=== PATIENT | male | born 1945 | race Caucasian/White ===

== ENCOUNTER 2019-04-15 22:11 | Emergency (ER) | payer OTHER ==
[2019-04-15] MEDS ORDERED: DUONEB 0.5-3 MG/3 ml Neb IH ONE ×2 (22:17→22:23)
[2019-04-15 22:27] LABS: BASOPHIL % 1.3 % (0.0-0.4); Basophil (Absolute #) 0.07 (0-0.4); Eosinophil (Absolute #) 0.11 (0-0.5); Granulocyte Absolute (ANC) 2.22 (1.4-6.9); Granulocytes % 39.5 % (36.0-66.0); Hematocrit 38.8 % (42-50); Hemoglobin 13.9 gm/dl (12.5-18.0); Lymphocyte (Absolute #) 2.29 (1.0-4.6); Lymphocytes % 40.9 % (24.0-44.0); Mean Cell Volume 98.5 fl (78-100); Mean Corpuscular Hgb Concent. 35.8 g/dl (32-36); Mean Platelet Volume 9.5 fl (6-9.5); Monocytes % 16.3 % (0.0-12.0); Platelet Count 216 K/mm3 (150-450); Red Blood Count 3.94 M/mm3 (4.1-5.6); Red Cell Distribution Width 12.9 % (11.5-14.0); White Blood Count 5.6 K/mm3 (4.0-10.5)
--- NOTE | 2019-04-15 22:30 | ERPHSYRPT ---
- History of Present Illness Time Seen by Provider: 04/15/19 22:22 Source: patient, EMS Exam Limitations: no limitations Physician History: Pt has been c/o chronic SOB, significantly worsened tonight, few hours ago. He denies cold symptoms, productive cough, sore throat, fever, chills, headaches, chest pain, nausea, vomiting, other complaints. He was given 125 mg Solumedrol IV and Albuterol, Duoneb treatment by EMS, with no improvement, he arrived on 15 l/min Oxygen, alert and oriented x4, discussed life support with him, he declared himself DNR, refuses intubation, CPR, any agressive measures, accepts antibiotics . Activities at Onset: none Severity of Dyspnea-Max: severe Severity of Dyspnea-Current: severe Possible Cause: frequent episodes Modifying Factors: Improves With: nothing Associated Symptoms: cough, wheezing Allergies/Adverse Reactions: No Known Drug Allergies Allergy (Unverified 04/15/19 22:31) Home Medications: Albuterol 8 gm Mdi Hfa [Ventolin Hfa MDI] 1 puff IH Q4H PRN PRN 04/15/19 [ History] Nebivolol HCl [Bystolic] 20 mg PO DAILY 04/15/19 [History] Umeclidinium Brm/Vilanterol Tr [Anoro Ellipta 62.5-25 Mcg INH] 1 puff IH DAILY 04/15/19 [History] - Review of Systems Constitutional: No Symptoms Ears, Nose, & Throat: No Symptoms Respiratory: Cough, Dyspnea Cardiac: No Symptoms Abdominal/Gastrointestinal: No Symptoms Musculoskeletal: No Symptoms Skin: No Symptoms Neurological: No Symptoms All Other Systems: Reviewed and Negative - Nursing Vital Signs Nursing Vital Signs: Initial Vital Signs Temperature 98.5 F 04/15/19 22:16 Pulse Rate 83 04/15/19 22:16 Respiratory Rate 39 H 04/15/19 22:16 Blood Pressure 178/92 04/15/19 22:16 O2 Sat by Pulse Oximetry 99 04/15/19 22:16 Pain Scale Pain Intensity 0 - Physical Exam General Appearance: mild distress Eye Exam: eyes nml inspection Ears, Nose, Throat Exam: normal ENT inspection, normal pharynx Neck Exam: normal inspection, non-tender, supple, No JVD Respiratory Exam: respiratory distress (mild), airway intact, diminished breath sounds, No chest tenderness Cardiovascular/Chest Exam: normal heart sounds, regular rate/rhythm, normal peripheral pulses, No murmur, No edema, No JVD Abdominal/Gastrointestinal Exam: soft, normal bowel sounds, No tenderness Extremity Exam: non-tender, No no calf tenderness, No no pedal edema, No socrates' s sign Peripheral Pulses Exam: carotid (R): 2+, carotid (L): 2+, dorsalis-pedis (R): 1+ , dorsalis-pedis (L): 1+ Neurologic Exam: alert, oriented x 3, cooperative, normal mood/affect Skin Exam: normal color, warm, dry, No rash, No petechiae, No cyanosis Lymphatic Exam: No adenopathy SpO2 Interpretation: borderline oxygenation O2 Delivery: Room Air - Course Nursing assessment & vital signs reviewed: Yes EKG Interpreted by Me: RATE, Sinus Rhythm, Right [place] Deviation, NORMAL INTERVALS, Non-specific ST Changes, Other (Bifascicular block, repeat Ek: 06 AM; NSR 80/min, unchanged.) - Radiology Exams Chest X-ray Interpretation: Interpreted by me, Negative, Other (COPD, Emphysema) - CT Exams Chest CT Interpretation: Negative, Tele-radiologist Report Ordered Tests: Active Orders 24 hr Category Date Time Status Jockey Room Custodian STAT Care 04/15/19 22:18 Active EKG-ER Only STAT Care 04/15/19 22:17 Active EKG-ER Only STAT Care 04/16/19 00:56 Active IV Insertion STAT Care 04/15/19 22:17 Active IV Insertion-2nd Peripheral STAT Care 04/15/19 22:22 Active Oxygen-ED Only Nasal Cannula 2 lpm Care 04/15/19 22:54 Active CHEST 1 VIEW (PORTABLE) Stat Exams 04/15/19 22:18 Taken CHEST WITH CONTRAST [CT] Stat Exams 04/16/19 00:02 Taken ARTERIAL BLOOD GASES Stat Lab 04/15/19 22:30 Completed BLOOD CULTURE Stat Lab 04/15/19 22:35 Received CBC W DIFF Stat Lab 04/15/19 22:15 Completed CMP Stat Lab 04/15/19 22:15 Completed D-DIMER QUANTITATION Stat Lab 04/15/19 22:15 Completed Lactic Acid Stat Lab 04/15/19 22:30 Completed MAGNESIUM Stat Lab 04/15/19 22:15 Completed NT PRO BNP Stat Lab 04/15/19 22:15 Completed PROTIME WITH INR Stat Lab 04/15/19 22:15 Completed PTT Stat Lab 04/15/19 22:15 Completed TROPONIN Q3H Lab 04/15/19 22:15 Completed TROPONIN Q3H Lab 04/16/19 01:04 Completed TROPONIN Q3H Lab 04/16/19 01:30 Ordered TROPONIN Q3H Lab 04/16/19 04:00 Ordered TROPONIN Q3H Lab 04/16/19 04:30 Ordered TROPONIN Q3H Lab 04/16/19 07:00 Ordered TROPONIN Q3H Lab 04/16/19 07:30 Ordered TROPONIN Q3H Lab 04/16/19 10:00 Ordered TROPONIN Q3H Lab 04/16/19 10:30 Ordered TROPONIN Q3H Lab 04/16/19 13:00 Ordered TROPONIN Q3H Lab 04/16/19 16:00 Ordered TROPONIN Q3H Lab 04/16/19 19:00 Ordered TROPONIN Q3H Lab 04/16/19 22:00 Ordered Respiratory Therapy Assessment DAILY RT 04/15/19 23:51 Active Medication Summary Discontinued Medications Generic Name Dose Route Start Last Admin Trade Name Freq PRN Reason Stop Dose Admin Albuterol/Ipratropium 3 ml 04/15/19 22:17 04/15/19 22:26 Duoneb 0.5-3 Mg/3 Ml Neb IH 04/15/19 22:18 3 ml STAT ONE Administration Albuterol/Ipratropium Confirm 04/15/19 22:23 Duoneb 0.5-3 Mg/3 Ml Neb Administered 04/15/19 22:24 Dose 3 ml IH .STK-MED ONE Lab/Rad Data: Laboratory Result Diagrams 04/15/19 22:15 04/15/19 22:15 Laboratory Results 04/16/19 04/15/19 04/15/19 Range/Units 01:04 22:30 22:15 WBC (4.0-10.5) K/mm3 RBC (4.1-5.6) M/mm3 Hgb (12.5-18.0) gm/dl Hct (42-50) % MCV (78-100) fl MCH (26-32) pg MCHC (32-36) g/dl RDW (11.5-14.0) % Plt Count (150-450) K/mm3 MPV (6-9.5) fl Gran % (36.0-66.0) % Eos # (Auto) (0-0.5) Absolute Lymphs (auto) (1.0-4.6) Absolute Monos (auto) (0.0-1.3) Lymphocytes % (24.0-44.0) % Monocytes % (0.0-12.0) % Eosinophils % (0.00-5.0) % Basophils % (0.0-0.4) % Absolute Granulocytes (1.4-6.9) Basophils # (0-0.4) PT (8.83-12.87) SECONDS INR (0.8-3.0) APTT (24.1-36.1) SECONDS D-Dimer 649 H* (215-500) ng/mL Puncture Site RIGHT RADIAL pCO2 35 (35-45) mmHg pO2 104 H (75-100) mmHg Base Excess -3.1 L (-2.0-2.0) O2 Saturation 92.7 L (94-100) g/dF ABG pH 7.39 (7.35-7.45) ABG HCO3 21.2 L (22-28) ABG O2 Sat (Measured) 97.5 (95-100) % Ronnie Test YES A-a Gradient 52 a/A Ratio 0.67 Hemoglobin 13.6 Carboxyhemoglobin 4.1 (0.0-6.9) % THgb Methemoglobin 0.8 L (1.4-1.5) % Temperature 37.0 C POC O2 Flow Rate 28 % Sodium (137-145) mmol/L Potassium 4.0 (3.5-5.1) mmol/L Chloride (98-107) mmol/L Carbon Dioxide (22-30) mmol/L Anion Gap (5-15) MEQ/L BUN (9-20) mg/dL Creatinine (0.66-1.25) mg/dL Estimated GFR ML/MIN Glucose (74-106) mg/dL Lactic Acid 2.0 (0.4-2.0) Calcium (8.4-10.2) mg/dL Magnesium (1.6-2.3) mg/dL Total Bilirubin (0.2-1.3) mg/dL AST (17-59) U/L ALT (0-50) U/L Alkaline Phosphatase (38-126) U/L Troponin I < 0.012 (0.000-0.034) ng/mL NT-Pro-B Natriuret Pep (0-900) pg/mL Serum Total Protein (6.3-8.2) g/dL Albumin (3.5-5.0) g/dL 04/15/19 04/15/19 04/15/19 Range/Units 22:15 22:15 22:15 WBC (4.0-10.5) K/mm3 RBC (4.1-5.6) M/mm3 Hgb (12.5-18.0) gm/dl Hct (42-50) % MCV (78-100) fl MCH (26-32) pg MCHC (32-36) g/dl RDW (11.5-14.0) % Plt Count (150-450) K/mm3 MPV (6-9.5) fl Gran % (36.0-66.0) % Eos # (Auto) (0-0.5) Absolute Lymphs (auto) (1.0-4.6) Absolute Monos (auto) (0.0-1.3) Lymphocytes % (24.0-44.0) % Monocytes % (0.0-12.0) % Eosinophils % (0.00-5.0) % Basophils % (0.0-0.4) % Absolute Granulocytes (1.4-6.9) Basophils # (0-0.4) PT 9.5 (8.83-12.87) SECONDS INR 0.84 (0.8-3.0) APTT 34.2 (24.1-36.1) SECONDS D-Dimer (215-500) ng/mL Puncture Site pCO2 (35-45) mmHg pO2 (75-100) mmHg Base Excess (-2.0-2.0) O2 Saturation (94-100) g/dF ABG pH (7.35-7.45) ABG HCO3 (22-28) ABG O2 Sat (Measured) (95-100) % Ronnie Test A-a Gradient a/A Ratio Hemoglobin Carboxyhemoglobin (0.0-6.9) % THgb Methemoglobin (1.4-1.5) % Temperature C POC O2 Flow Rate % Sodium 135 L (137-145) mmol/L Potassium 4.3 (3.5-5.1) mmol/L Chloride 100 (98-107) mmol/L Carbon Dioxide 24 (22-30) mmol/L Anion Gap 15.0 (5-15) MEQ/L BUN 13 (9-20) mg/dL Creatinine 0.87 (0.66-1.25) mg/dL Estimated GFR > 60.0 ML/MIN Glucose 89 (74-106) mg/dL Lactic Acid (0.4-2.0) Calcium 9.3 (8.4-10.2) mg/dL Magnesium 2.0 (1.6-2.3) mg/dL Total Bilirubin 0.30 (0.2-1.3) mg/dL AST 32 (17-59) U/L ALT 18 (0-50) U/L Alkaline Phosphatase 89 (38-126) U/L Troponin I < 0.012 (0.000-0.034) ng/mL NT-Pro-B Natriuret Pep 68.1 (0-900) pg/mL Serum Total Protein 7.6 (6.3-8.2) g/dL Albumin 4.3 (3.5-5.0) g/dL 04/15/19 Range/Units 22:15 WBC 5.6 (4.0-10.5) K/mm3 RBC 3.94 L (4.1-5.6) M/mm3 Hgb 13.9 (12.5-18.0) gm/dl Hct 38.8 L (42-50) % MCV 98.5 (78-100) fl MCH 35.2 H (26-32) pg MCHC 35.8 (32-36) g/dl RDW 12.9 (11.5-14.0) % Plt Count 216 (150-450) K/mm3 MPV 9.5 (6-9.5) fl Gran % 39.5 (36.0-66.0) % Eos # (Auto) 0.11 (0-0.5) Absolute Lymphs (auto) 2.29 (1.0-4.6) Absolute Monos (auto) 0.91 (0.0-1.3) Lymphocytes % 40.9 (24.0-44.0) % Monocytes % 16.3 H (0.0-12.0) % Eosinophils % 2.0 (0.00-5.0) % Basophils % 1.3 (0.0-0.4) % Absolute Granulocytes 2.22 (1.4-6.9) Basophils # 0.07 (0-0.4) PT (8.83-12.87) SECONDS INR (0.8-3.0) APTT (24.1-36.1) SECONDS D-Dimer (215-500) ng/mL Puncture Site pCO2 (35-45) mmHg pO2 (75-100) mmHg Base Excess (-2.0-2.0) O2 Saturation (94-100) g/dF ABG pH (7.35-7.45) ABG HCO3 (22-28) ABG O2 Sat (Measured) (95-100) % Ronnie Test A-a Gradient a/A Ratio Hemoglobin Carboxyhemoglobin (0.0-6.9) % THgb Methemoglobin (1.4-1.5) % Temperature C POC O2 Flow Rate % Sodium (137-145) mmol/L Potassium (3.5-5.1) mmol/L Chloride (98-107) mmol/L Carbon Dioxide (22-30) mmol/L Anion Gap (5-15) MEQ/L BUN (9-20) mg/dL Creatinine (0.66-1.25) mg/dL Estimated GFR ML/MIN Glucose (74-106) mg/dL Lactic Acid (0.4-2.0) Calcium (8.4-10.2) mg/dL Magnesium (1.6-2.3) mg/dL Total Bilirubin (0.2-1.3) mg/dL AST (17-59) U/L ALT (0-50) U/L Alkaline Phosphatase (38-126) U/L Troponin I (0.000-0.034) ng/mL NT-Pro-B Natriuret Pep (0-900) pg/mL Serum Total Protein (6.3-8.2) g/dL Albumin (3.5-5.0) g/dL - Progress Progress: improved Air Movement: good Progress Note: 04/16/19 01:22 Pt improved significantly, his Oxygen supply was removed, O 2 saturation: 94-95 % on room air, afebrile, denies chest pain, no difficulty breathing, stable. We reviewed his results with him and his son ( CT chest : negative, repeat troponin : negative) he is being discharged home with his son to rest x 2-3 days , drink plenty of fluids, and follow up with his physician in 2-3 days. Blood Culture(s) Obtained: Yes Antibiotics given: Yes Counseled pt/family regarding: lab results, diagnosis, need for follow-up, rad results - Departure Departure Disposition: Home Clinical Impression: COPD (chronic obstructive pulmonary disease) with acute bronchitis Condition: Stable Critical Care Time: No Referrals: Provider,Unknown [Primary Care Provider] - Instructions: Chronic Obstructive Pulmonary Disease, Shortness of Breath ( Dyspnea) (DC), Exacerbation of COPD (DC) Additional Instructions: Rest x 2-3 days, drink plenty of fluids, and follow up with your physician in 2- 3 days, return if severe shortness of breath, chest pain, vomiting, fever> 102 F , lethargy ! Prescriptions: Azithromycin 250 mg [Zithromax 250 MG TABLET] 250 mg PO ZPACK #6 tablet Methylprednisolone Packet [Medrol Dosepack] 4 mg PO UD #1 packet
[2019-04-15 22:33] LABS: Mean Corpuscular Hemoglobin 35.2 pg (26-32)
[2019-04-15 22:34] LABS: INR 0.84 (0.8-3.0); PROTIME 9.5 SECONDS (8.83-12.87)
[2019-04-15 22:37] LABS: PTT 34.2 SECONDS (24.1-36.1)
[2019-04-15 22:45] LABS: A-aADO2 52; ABG HEMOGLOBIN 13.6; ARTERIAL BLD GAS O2 SATURATION 97.5 % (95-100); ARTERIAL BLOOD GAS BASE EXCESS -3.1 (-2.0-2.0); ARTERIAL BLOOD GAS FIO2 28 %; ARTERIAL BLOOD GAS PCO2 35 mmHg (35-45); ARTERIAL BLOOD GAS PO2 104 mmHg (75-100); ARTERIAL BLOOD GAS pH 7.39 (7.35-7.45); CARBOXYHEMOGLOBIN 4.1 % THgb (0.0-6.9); HCO3- 21.2 (22-28); HGB O2 SAT 92.7 g/dF (94-100); Methhemoglobin 0.8 % (1.4-1.5); paO2 pAO1 0.67
[2019-04-15 22:47] LABS: ALBUMIN 4.3 g/dL (3.5-5.0); ALKALINE PHOSPHATASE 89 U/L (38-126); BLOOD UREA NITROGEN 13 mg/dL (9-20); CHLORIDE 100 mmol/L (98-107); Calcium 9.3 mg/dL (8.4-10.2); Carbon Dioxide 24 mmol/L (22-30); Creatinine 1 0.87 mg/dL (0.66-1.25); Glucose 89 mg/dL (74-106); NT PRO BNP 68.1 pg/mL (0-900); Potassium 4.3 mmol/L (3.5-5.1); SGOT/AST 32 U/L (17-59); SGPT/ALT 18 U/L (0-50); SODIUM 135 mmol/L (137-145); Total Protein 7.6 g/dL (6.3-8.2)
[2019-04-15 22:52] LABS: ABG SITE RIGHT RADIAL; ALLEN TEST OK? YES
[2019-04-16 01:10] VITALS: O2SAT 95
[2019-04-16 01:38] VITALS: BP 125/78; PULSE 87
--- NOTE | 2019-04-16 09:20 | XRAY ---
Indication: Dyspnea. Comparison: August 30, 2007. Portable apical lordotic chest unchanged again hyperinflated and clear with incidental lingula calcified granuloma. Heart and mediastinal structures within normal limits. Bony thorax intact. No new/acute findings.
--- NOTE | 2019-04-16 09:20 | XRAY ---
Indication: Dyspnea and elevated d-dimer. COPD. Multiple contiguous axial images obtained through the chest using 80 cc Isovue 370 contrast and PE protocol. Comparison: None There is good opacification of the pulmonary arteries to include the lobar and segmental branches. No filling defect or pulmonary embolus. Heart is not enlarged. Aorta is mildly arteriosclerotic without aneurysm/dissection. No pathologic mediastinal/hilar lymphadenopathy. Examination of the lung parenchyma demonstrates mild diffuse pulmonary emphysema with minimal fibrosis/scarring and left lower lobe calcified granuloma. No suspicious pulmonary mass, infiltrate, or effusion. Bony thorax intact with mild degenerative changes throughout the spine. Limited upper abdomen including adrenal glands are unremarkable. Impression: 1. Negative pulmonary embolus. No acute cardiopulmonary abnormalities. 2. Incidental pulmonary emphysema and evidence for old granulomatous disease. Comment: Preliminary interpretation was made by [facility]. No discrepancy. CT DI 15.39
== END 2019-04-16 01:50 | disposition home or self-care (01) ==
LOC: ED 22:11
DX: J44.9 Chronic obstructive pulmonary disease, unspecified (principal); J20.9 Acute bronchitis, unspecified
CPT/HCPCS: 36000; 36415; 36600; 71045; 71260; 80053; 82375; 82803; 83605; 83735; 83880; 84484; 85025; 85379; 85610; 85730; 87040; 93005; 93041; 94640; 99284; A9270-GY

== ENCOUNTER 2019-11-09 23:33 | Emergency (ER) | payer MEDICARE, OTHER ==
[2019-11-09] MEDS ORDERED: DUONEB 0.5-3 MG/3 ml Neb IH ONE ×2 (23:42→23:47)
[2019-11-09] MEDS ORDERED: Sodium Chloride 0.9% 1000 ML 1,000 ML IV STA (23:46)
[2019-11-09] MEDS ORDERED: BABY ASPIRIN 81 MG CHEW PO ONE (23:46)
[2019-11-09] MEDS ORDERED: solu-MEDROL 125 MG IV ONE (23:47)
[2019-11-09] MEDS ORDERED: Zofran 4 MG/2 ML VIAL IV ONE (23:47)
[2019-11-10 00:01] LABS: Absolute Neutrophil Ct (ANC) 2.23 (1.4-6.9); BASOPHIL % 0.8 % (0.0-0.4); Basophil (Absolute #) 0.04 (0-0.4); Eosinophil % 1.9 % (0.00-5.0); Hematocrit 46.2 % (42-50); Hemoglobin 15.8 gm/dl (12.5-18.0); Lymphocyte (Absolute #) 2.21 (1.0-4.6); Lymphocytes % 42.3 % (24.0-44.0); Mean Cell Volume 100.4 fl (78-100); Mean Corpuscular Hemoglobin 34.3 pg (26-32); Mean Corpuscular Hgb Concent. 34.2 g/dl (32-36); Mean Platelet Volume 10.3 fl (7.5-11.0); Monocyte (Absolute #) 0.65 (0.0-1.3); Monocytes % 12.4 % (0.0-12.0); Neutrophil % 42.6 % (36.0-66.0); Platelet Count 226 K/mm3 (150-450); Red Cell Distribution Width 13.9 % (11.5-14.0); White Blood Count 5.2 K/mm3 (4.0-10.5)
--- NOTE | 2019-11-10 00:16 | ERPHSYRPT ---
- History of Present Illness Source: patient Exam Limitations: no limitations Patient Subjective Stated Complaint: pt states he has been increasingly short of breath for the last 2-3 hours. Triage Nursing Assessment: pt alert and oriented, ansers questions approp. pt back per wheelchair, transfers to stretcher with minimal assist. pt short of [id number] at rest with pursed lip breathing and accessory muscle use. lungs cta after breathing treatment. skin warm and dry. Physician History: Patient is here with SOB. Known COPD and continues to smoke cigarettes. Some nausea, without vomiting. Location: chest Quality: SOB, malaise Radiation: none Severity: moderate Duration: a few days, but worse today Timing: gradual Modifying factors/associated signs and symptoms: he did have his flu shot this year Timing/Duration: today Cough Quality/Degree: mild Possible Cause: frequent episodes Allergies/Adverse Reactions: No Known Drug Allergies Allergy (Verified 11/09/19 23:52) Home Medications: Albuterol 8 gm Mdi Hfa [Ventolin Hfa MDI] 1 puff IH Q4H PRN PRN 04/15/19 [ History] Nebivolol HCl [Bystolic] 20 mg PO DAILY 04/15/19 [History] Fluticasone/Umeclidin/Vilanter [Trelegy Ellipta 100-62.5-25] 1 each IH DAILY 09/18 [History] Hx Tetanus, Diphtheria Vaccination/Date Given: Yes Hx Influenza Vaccination/Date Given: Yes Hx Pneumococcal Vaccination/Date Given: No Immunizations Up to Date: Yes - Review of Systems Constitutional: No Fever, No Chills Eyes: No Symptoms Ears, Nose, & Throat: No Symptoms Respiratory: Cough, Dyspnea, Wheezing Cardiac: No Chest Pain, No Edema, No Syncope Abdominal/Gastrointestinal: No Abdominal Pain, No Nausea, No Vomiting, No Diarrhea Genitourinary Symptoms: No Dysuria Musculoskeletal: No Back Pain, No Neck Pain Skin: No Rash Neurological: No Dizziness, No Focal Weakness, No Sensory Changes Psychological: No Symptoms Endocrine: No Symptoms All Other Systems: Reviewed and Negative - Past Medical History Neurological History: No Pertinent History ENT History: No Pertinent History Cardiac History: Hypertension Respiratory History: Asthma, COPD, Emphysema Endocrine Medical History: No Pertinent History Musculoskeletal History: No Pertinent History GI Medical History: No Pertinent History History: No Pertinent History Psycho-Social History: No Pertinent History - Past Surgical History Past Surgical History: No Neuro Surgical History: No Pertinent History Cardiac: No Pertinent History Respiratory: No Pertinent History Gastrointestinal: No Pertinent History Genitourinary: No Pertinent History Musculoskeletal: No Pertinent History Male Surgical History: No Pertinent History - Social History Smoking Status: Current every day smoker How long have you smoked: years Exposure to second hand smoke: Yes Drug Use: none Patient Lives Alone: Yes - Nursing Vital Signs Nursing Vital Signs: Initial Vital Signs Temperature 96.4 F 11/09/19 23:34 Pulse Rate 75 11/09/19 23:34 Respiratory Rate 30 H 11/09/19 23:34 Blood Pressure 188/88 11/09/19 23:34 O2 Sat by Pulse Oximetry 97 11/09/19 23:34 Pain Scale Pain Intensity 0 - Physical Exam General Appearance: no apparent distress, alert Eye Exam: PERRL/EOMI, eyes nml inspection Ears, Nose, Throat Exam: normal ENT inspection, TMs normal, pharynx normal, moist mucous membranes Neck Exam: normal inspection, non-tender, supple, full range of motion Respiratory Exam: normal breath sounds, lungs clear, wheezing (wheezing throughout), No respiratory distress Cardiovascular Exam: regular rate/rhythm, normal heart sounds Gastrointestinal/Abdomen Exam: soft, No tenderness Back Exam: normal inspection, No CVA tenderness, No vertebral tenderness Extremity Exam: normal inspection, normal range of motion Neurologic Exam: alert, oriented x 3, cooperative, normal mood/affect, sensation nml, No motor deficits Skin Exam: normal color, warm, dry, No rash Lymphatic Exam: No adenopathy SpO2: 99 Ordered Tests: Active Orders 24 hr Category Date Time Status Executive Assistant To General Counsel STAT Care 11/09/19 23:46 Active EKG-ER Only STAT Care 11/09/19 23:46 Active IV Insertion STAT Care 11/09/19 23:46 Active CHEST 2 VIEWS (PA AND LAT) Stat Exams 11/09/19 23:46 Taken CBC W DIFF Stat Lab 11/09/19 23:58 Completed CMP Stat Lab 11/09/19 23:58 Completed NT PRO BNP Stat Lab 11/09/19 23:58 Completed TROPONIN Q3H Lab 11/09/19 23:58 Received TROPONIN Q3H Lab 11/10/19 02:46 Ordered TROPONIN Q3H Lab 11/10/19 05:46 Ordered TROPONIN Q3H Lab 11/10/19 08:46 Ordered TROPONIN Q3H Lab 11/10/19 11:46 Ordered Respiratory Therapy Assessment DAILY RT 11/09/19 23:45 Active Medication Summary Generic Name Dose Route Start Last Admin Trade Name Abby PRN Reason Stop Dose Admin Sodium Chloride 1,000 mls @ 999 mls/hr 11/09/19 23:46 Sodium Chloride 0.9% 1000 Ml IV 11/10/19 00:46 .Q1H1M STA Discontinued Medications Generic Name Dose Route Start Last Admin Trade Name Abby PRN Reason Stop Dose Admin Albuterol Sulfate Confirm 11/10/19 00:25 Proventil 2.5 Mg/3 Ml Neb Administered 11/10/19 00:26 Dose 2.5 mg IH .STK-MED ONE Albuterol Sulfate 2.5 mg 11/10/19 00:27 11/10/19 00:29 Proventil 2.5 Mg/3 Ml Neb IH 11/10/19 00:28 2.5 mg STAT ONE Administration Albuterol/Ipratropium Confirm 11/09/19 23:42 Duoneb 0.5-3 Mg/3 Ml Neb Administered 11/09/19 23:43 Dose 3 ml IH .STK-MED ONE Albuterol/Ipratropium 3 ml 11/09/19 23:47 11/09/19 23:50 Duoneb 0.5-3 Mg/3 Ml Neb IH 11/09/19 23:48 3 ml STAT ONE Administration Aspirin 324 mg 11/09/19 23:46 Baby Aspirin 81 Mg Chew PO 11/09/19 23:47 STAT ONE Aspirin Confirm 11/10/19 00:36 Baby Aspirin 81 Mg Chew Administered 11/10/19 00:37 Dose 324 mg .ROUTE .STK-MED ONE Sodium Chloride Confirm 11/10/19 00:36 Sodium Chloride 0.9% 1000 Ml Administered 11/10/19 00:37 Dose 1,000 mls @ ud .ROUTE .STK-MED ONE Methylprednisolone Sodium Succinate 125 mg 11/09/19 23:47 Solu-Medrol 125 Mg IV 11/09/19 23:48 STAT ONE Methylprednisolone Sodium Succinate Confirm 11/10/19 00:36 Solu-Medrol 125 Mg Administered 11/10/19 00:37 Dose 125 mg .ROUTE .STK-MED ONE Ondansetron HCl 4 mg 11/09/19 23:47 Zofran 4 Mg/2 Ml Vial IV 11/09/19 23:48 STAT ONE Ondansetron HCl Confirm 11/10/19 00:36 Zofran 4 Mg/2 Ml Vial Administered 11/10/19 00:37 Dose 4 mg .ROUTE .STK-MED ONE Lab/Rad Data: Laboratory Result Diagrams 11/09/19 23:58 11/09/19 23:58 Laboratory Results 11/09/19 11/09/19 11/09/19 Range/Units 23:58 23:58 23:58 WBC 5.2 (4.0-10.5) K/mm3 RBC 4.60 (4.1-5.6) M/mm3 Hgb 15.8 (12.5-18.0) gm/dl Hct 46.2 (42-50) % MCV 100.4 H (78-100) fl MCH 34.3 H (26-32) pg MCHC 34.2 (32-36) g/dl RDW 13.9 (11.5-14.0) % Plt Count 226 (150-450) K/mm3 MPV 10.3 (7.5-11.0) fl Gran % 42.6 (36.0-66.0) % Eos # (Auto) 0.10 (0-0.5) Absolute Lymphs (auto) 2.21 (1.0-4.6) Absolute Monos (auto) 0.65 (0.0-1.3) Lymphocytes % 42.3 (24.0-44.0) % Monocytes % 12.4 H (0.0-12.0) % Eosinophils % 1.9 (0.00-5.0) % Basophils % 0.8 (0.0-0.4) % Absolute Granulocytes 2.23 (1.4-6.9) Basophils # 0.04 (0-0.4) Sodium 134 L (137-145) mmol/L Potassium 3.9 (3.5-5.1) mmol/L Chloride 99 (98-107) mmol/L Carbon Dioxide 25 (22-30) mmol/L Anion Gap 14.7 (5-15) MEQ/L BUN 9 (9-20) mg/dL Creatinine 0.86 (0.66-1.25) mg/dL Estimated GFR > 60.0 ML/MIN Glucose 88 (74-106) mg/dL Calcium 9.5 (8.4-10.2) mg/dL Total Bilirubin 0.50 (0.2-1.3) mg/dL AST 51 (17-59) U/L ALT 24 (0-50) U/L Alkaline Phosphatase 78 (38-126) U/L NT-Pro-B Natriuret Pep 92.6 (0-900) pg/mL Serum Total Protein 9.1 H (6.3-8.2) g/dL Albumin 5.1 H (3.5-5.0) g/dL Influenza Type A Ag NEGATIVE (NEGATIVE) Influenza Type B Ag NEGATIVE (NEGATIVE) RSV (PCR) NEGATIVE (Negative) - Progress Progress: improved Air Movement: good Progress Note: 11/10/19 00:15 - We'll obtain basic labs, fluids, EKG, troponin, chest x-ray - I feel comfortable with one time negative troponin given symptoms have improved and started greater then 6 hours ago. - EKG shows no ST changes - my read. See full read below. - O2 saturations consistently greater than 95%. - CXR shows no pneumonia, pneumothorax - my read - no other obvious lab abnormalities - fluids, breathing tx, steriods 11/10/19 00:45 Patient feeling improved. His wheezing has resolved. Labs and workup are generally unremarkable. He will need close follow up with his PCP. We'll discharge home with steroids and a zpack. - Departure Departure Disposition: Home Clinical Impression: COPD (chronic obstructive pulmonary disease) with acute bronchitis Condition: Stable Critical Care Time: No Referrals: MARCK ALMANZAR [ACTIVE STAFF] - Instructions: Chronic Obstructive Pulmonary Disease Prescriptions: Azithromycin 250 mg [Zithromax 250 MG TABLET] 250 mg PO ZPACK #6 tablet Prednisone 10 mg [Deltasone 10 mg] 60 mg PO DAILY #15 tablet
[2019-11-10 00:24] LABS: ALBUMIN 5.1 g/dL (3.5-5.0); ALKALINE PHOSPHATASE 78 U/L (38-126); ANION GAP 14.7 MEQ/L (5-15); BLOOD UREA NITROGEN 9 mg/dL (9-20); CHLORIDE 99 mmol/L (98-107); Calcium 9.5 mg/dL (8.4-10.2); Carbon Dioxide 25 mmol/L (22-30); Creatinine 1 0.86 mg/dL (0.66-1.25); Glucose 88 mg/dL (74-106); NT PRO BNP 92.6 pg/mL (0-900); Potassium 3.9 mmol/L (3.5-5.1); SGOT/AST 51 U/L (17-59); SGPT/ALT 24 U/L (0-50); SODIUM 134 mmol/L (137-145); Total Protein 9.1 g/dL (6.3-8.2)
[2019-11-10] MEDS ORDERED: PROVENTIL 2.5 MG/3 ML NEB IH ONE ×2 (00:25→00:27)
[2019-11-10] MEDS ORDERED: solu-MEDROL 125 MG ONE (00:36)
[2019-11-10] MEDS ORDERED: BABY ASPIRIN 81 MG CHEW ONE (00:36)
[2019-11-10] MEDS ORDERED: Sodium Chloride 0.9% 1000 ML 1,000 ML ONE (00:36)
[2019-11-10] MEDS ORDERED: Zofran 4 MG/2 ML VIAL ONE (00:36)
[2019-11-10 00:38] LABS: INFLUENZA A NEGATIVE (NEGATIVE); INFLUENZA B NEGATIVE (NEGATIVE); RESPIRATORY SYNCTIAL VIRUS NEGATIVE (Negative)
[2019-11-10 01:09] VITALS: BP 120/83; PULSE 78; O2SAT 97
--- NOTE | 2019-11-10 08:57 | XRAY ---
Indication: Short of breath. Comparison: April 15, 2019. PA/lateral chest remains hyperinflated and clear with incidental left lung calcified granuloma. Heart is not enlarged. Bony thorax intact again with mild osteopenia and degenerative changes. Impression: Stable nonacute hyperinflated chest with chronic features.
== END 2019-11-10 01:24 | disposition home or self-care (01) ==
LOC: ED 23:33
DX: J44.0 Chronic obstructive pulmonary disease with (acute) lower respiratory infection (principal); F17.200 Nicotine dependence, unspecified, uncomplicated; R11.10 Vomiting, unspecified; R11.0 Nausea
CPT/HCPCS: 36000; 36415; 71046; 80053; 83880; 84484; 85025; 87631; 93005; 93041; 94640; 96374; 96375; 99284; J2405; J2930; J7609; A9270-GY

== ENCOUNTER 2020-06-10 22:25 | Observation (INO) | payer MEDICARE, OTHER ==
[2020-06-10] MEDS ORDERED: ROCEPHIN 1 Gm-D5w 50 ml Bag** 1 G/50 ML IVPB IV STA (22:49)
[2020-06-10] MEDS ORDERED: DUONEB 0.5-3 MG/3 ml Neb IH ONE ×2 (22:49→22:59)
[2020-06-10] MEDS ORDERED: Zithromax 500 MG/ 250 ML NaCl Premix 500 MG/250 ML IVPB IV STA (22:49)
[2020-06-10] MEDS ORDERED: ROCEPHIN 1 Gm-D5w 50 ml Bag** 1 G/50 ML IVPB IV ONE (23:08)
[2020-06-10] MEDS ORDERED: Zithromax 500 MG/ 250 ML NaCl Premix 500 MG/250 ML IVPB IV ONE (23:08)
[2020-06-10 23:20] LABS: Absolute Neutrophil Ct (ANC) 2.43 (1.4-6.9); BASOPHIL % 0.9 % (0.0-0.4); Basophil (Absolute #) 0.04 (0-0.4); Eosinophil % 2.5 % (0.00-5.0); Eosinophil (Absolute #) 0.11 (0-0.5); Hematocrit 37.4 % (42-50); Lymphocyte (Absolute #) 1.32 (1.0-4.6); Lymphocytes % 30.3 % (24.0-44.0); Mean Cell Volume 100.8 fl (78-100); Mean Corpuscular Hgb Concent. 34.8 g/dl (32-36); Mean Platelet Volume 9.8 fl (7.5-11.0); Monocyte (Absolute #) 0.45 (0.0-1.3); Monocytes % 10.3 % (0.0-12.0); Platelet Count 221 K/mm3 (150-450); Red Blood Count 3.71 M/mm3 (4.1-5.6); Red Cell Distribution Width 13.2 % (11.5-14.0); White Blood Count 4.4 K/mm3 (4.0-10.5)
[2020-06-10] MEDS ORDERED: BABY ASPIRIN 81 MG CHEW PO ONE (23:23)
--- NOTE | 2020-06-10 23:24 | ERPHSYRPT ---
- History of Present Illness Time Seen by Provider: 06/10/20 22:33 Source: patient, EMS Patient Subjective Stated Complaint: pt states he has been short of breath for last 2-3 hours. states last 2 nights he has been short of breath. denies fever or increased cough. Triage Nursing Assessment: pt alert and oriented, answers questions approp. pt arrive per ambulance, transfers to [facility] with assist of 3. nrb in place on arrival. skin warm and dry. pt short of breath at rest with accessory muscle use noted. lung sounds diminshed throughout. Physician History: 75 years old male with history of heavy tobacco abuse, COPD is brought in the ER with chief complaint of worsening shortness of breath for the last 2 to 3 days associated with worsening wheezing and cough productive of clear to yellow sputum copious in amount. Is also complaining of chest discomfort. When EMS got at his place, he was in mild distress and oxygen saturation was 90% on room air, given Solu-Medrol, DuoNeb and placed on oxygen and his symptoms started to improve. On presentation in the ER patient does have some shortness of breath but is feeling much better than earlier. Denies any fever or chills. Denies any chest pain but has some soreness because of coughing. Denies any sick contact. Continues to smoke 2 packs daily. Timing/Duration: day(s) (2), gradual onset, worse Activities at Onset: rest Severity of Dyspnea-Max: severe Severity of Dyspnea-Current: moderate Possible Cause: occasional episodes Modifying Factors: Improves With: albuterol nebulizer, coughing, oxygen Associated Symptoms: cough, chest pain/discomfort, wheezing, productive cough, No chills Allergies/Adverse Reactions: No Known Drug Allergies Allergy (Verified 06/10/20 22:41) Home Medications: Albuterol 8 gm Mdi Hfa [Ventolin Hfa MDI] 1 puff IH Q4H PRN PRN 04/15/19 [History] Nebivolol HCl [Bystolic] 20 mg PO DAILY 04/15/19 [History] Fluticasone/Umeclidin/Vilanter [Trelegy Ellipta 100-62.5-25] 1 each IH DAILY 11/09/19 [History] Hx Tetanus, Diphtheria Vaccination/Date Given: Yes Hx Influenza Vaccination/Date Given: Yes Hx Pneumococcal Vaccination/Date Given: Yes Immunizations Up to Date: Yes Travel Risk - International Travel Have you traveled outside of the country in past 3 weeks: No - Coronavirus Screening Are you exhibiting any of the following symptoms?: Yes Symptoms: Shortness of Breath Close contact with a COVID-19 positive Pt in past 14-21 Days: No - Review of Systems Constitutional: Fatigue Eyes: No Symptoms Ears, Nose, & Throat: No Symptoms Respiratory: Cough, Dyspnea, Wheezing Cardiac: Chest Pain Abdominal/Gastrointestinal: No Symptoms Genitourinary Symptoms: No Symptoms Musculoskeletal: No Symptoms Skin: No Symptoms Neurological: No Symptoms Psychological: No Symptoms Endocrine: No Symptoms Hematologic/Lymphatic: No Symptoms Immunological/Allergic: No Symptoms - Past Medical History Neurological History: No Pertinent History ENT History: No Pertinent History Cardiac History: Hypertension Respiratory History: Asthma, COPD, Emphysema Endocrine Medical History: No Pertinent History Musculoskeletal History: No Pertinent History GI Medical History: No Pertinent History History: No Pertinent History Psycho-Social History: No Pertinent History - Past Surgical History Past Surgical History: No Neuro Surgical History: No Pertinent History Cardiac: No Pertinent History Respiratory: No Pertinent History Gastrointestinal: No Pertinent History Genitourinary: No Pertinent History Musculoskeletal: No Pertinent History Male Surgical History: No Pertinent History - Social History Smoking Status: Current every day smoker How long have you smoked: years Exposure to second hand smoke: Yes Drug Use: none Patient Lives Alone: Yes - Nursing Vital Signs Nursing Vital Signs: Initial Vital Signs Temperature 97.5 F 06/10/20 22:27 Pulse Rate 59 L 06/10/20 22:27 Respiratory Rate 26 H 06/10/20 22:27 Blood Pressure 169/81 06/10/20 22:27 O2 Sat by Pulse Oximetry 98 06/10/20 22:27 Pain Scale Pain Intensity 0 - Physical Exam General Appearance: mild distress, alert, anxiety Eye Exam: PERRL/EOMI, eyes nml inspection Ears, Nose, Throat Exam: hearing grossly normal, normal ENT inspection, pharyngeal erythema Neck Exam: normal inspection, non-tender, supple, full range of motion Respiratory Exam: crackles/rales, wheezing Cardiovascular/Chest Exam: normal heart sounds, regular rate/rhythm Abdominal/Gastrointestinal Exam: soft, No tenderness Extremity Exam: non-tender, normal range of motion Neurologic Exam: alert, oriented x 3, cooperative, mortgage manager II-XII nml as tested Skin Exam: normal color SpO2 Interpretation: O2 applied SpO2: 100 O2 Delivery: Nasal Cannula - Course Nursing assessment & vital signs reviewed: Yes EKG Interpreted by Me: RATE (59), Sinus Rhythm, NORMAL AXIS, Right Bundle Branch Block (Nonspecific ST and T wave changes), Other (And a branch block) Ordered Tests: Active Orders 24 hr Category Date Time Status Pipe Fitter STAT Care 06/10/20 22:50 Active EKG-ER Only STAT Care 06/10/20 22:49 Active IV Insertion STAT Care 06/10/20 22:49 Active Oxygen-ED Only Nasal Cannula 2 lpm Care 06/10/20 22:49 Active CHEST 1 VIEW (PORTABLE) Stat Exams 06/10/20 22:50 Taken BLOOD CULTURE Stat Lab 06/10/20 23:16 Received CBC W DIFF Stat Lab 06/10/20 23:16 Completed CMP Stat Lab 06/10/20 23:16 Completed Lactic Acid Stat Lab 06/10/20 23:03 Completed MAGNESIUM Stat Lab 06/10/20 23:16 Completed NT PRO BNP Stat Lab 06/10/20 23:16 Completed TROPONIN Q3H Lab 06/10/20 23:16 Completed TROPONIN Q3H Lab 06/11/20 02:00 Ordered TROPONIN Q3H Lab 06/11/20 05:00 Ordered TROPONIN Q3H Lab 06/11/20 08:00 Ordered TROPONIN Q3H Lab 06/11/20 11:00 Ordered UA W/RFX UR CULTURE Stat Lab 06/11/20 00:19 Ordered Respiratory Therapy Assessment DAILY RT 06/10/20 23:07 Active Medication Summary Discontinued Medications Generic Name Dose Route Start Last Admin Trade Name Freq PRN Reason Stop Dose Admin Albuterol/Ipratropium 3 ml 06/10/20 22:49 06/10/20 23:00 Duoneb 0.5-3 Mg/3 Ml Neb IH 06/10/20 22:50 3 ml STAT ONE Administration Albuterol/Ipratropium Confirm 06/10/20 22:59 Duoneb 0.5-3 Mg/3 Ml Neb Administered 06/10/20 23:00 Dose 3 ml IH .STK-MED ONE Aspirin 324 mg 06/11/20 10:00 Ecotrin 81 Mg PO 07/11/20 09:59 DAILY ROGE Aspirin 324 mg 06/10/20 23:23 06/10/20 23:26 Baby Aspirin 81 Mg Chew PO 06/10/20 23:24 324 mg STAT ONE Administration Ceftriaxone Sodium/Dextrose 1 g in 50 mls @ 100 mls/hr 06/10/20 22:49 06/11/20 00:21 Rocephin 1 Gm-D5w 50 Ml Bag IV 06/10/20 23:18 Infused STAT STA Infusion Azithromycin 500 mg in 250 mls @ 250 mls/hr 06/10/20 22:49 06/11/20 00:21 Zithromax 500 Mg/ 250 Ml Nacl Premix IV 06/10/20 23:48 Infused STAT STA Infusion Azithromycin Confirm 06/10/20 23:08 Zithromax 500 Mg/ 250 Ml Nacl Premix Administered 06/10/20 23:09 Dose 500 mg in 250 mls @ ud IV .STK-MED ONE Ceftriaxone Sodium/Dextrose Confirm 06/10/20 23:08 Rocephin 1 Gm-D5w 50 Ml Bag Administered 06/10/20 23:09 Dose 1 g in 50 mls @ ud IV .STK-MED ONE Lab/Rad Data: Laboratory Result Diagrams 06/10/20 23:16 06/10/20 23:16 Laboratory Results 06/10/20 06/10/20 06/10/20 Range/Units 23:16 23:16 23:16 WBC (4.0-10.5) K/mm3 RBC (4.1-5.6) M/mm3 Hgb (12.5-18.0) gm/dl Hct (42-50) % MCV (78-100) fl MCH (26-32) pg MCHC (32-36) g/dl RDW (11.5-14.0) % Plt Count (150-450) K/mm3 MPV (7.5-11.0) fl Gran % (36.0-66.0) % Eos # (Auto) (0-0.5) Absolute Lymphs (auto) (1.0-4.6) Absolute Monos (auto) (0.0-1.3) Lymphocytes % (24.0-44.0) % Monocytes % (0.0-12.0) % Eosinophils % (0.00-5.0) % Basophils % (0.0-0.4) % Absolute Granulocytes (1.4-6.9) Basophils # (0-0.4) Sodium 132 L (137-145) mmol/L Potassium 4.3 (3.5-5.1) mmol/L Chloride 99 (98-107) mmol/L Carbon Dioxide 24 (22-30) mmol/L Anion Gap 13.1 (5-15) MEQ/L BUN 11 (9-20) mg/dL Creatinine 0.86 (0.66-1.25) mg/dL Estimated GFR > 60.0 ML/MIN Glucose 84 (74-106) mg/dL Lactic Acid (0.4-2.0) Calcium 9.0 (8.4-10.2) mg/dL Magnesium 2.0 (1.6-2.3) mg/dL Total Bilirubin 0.30 (0.2-1.3) mg/dL AST 36 (17-59) U/L ALT 16 (0-50) U/L Alkaline Phosphatase 79 (38-126) U/L Troponin I < 0.012 (0.000-0.034) ng/mL NT-Pro-B Natriuret Pep 132 (0-900) pg/mL Serum Total Protein 6.4 (6.3-8.2) g/dL Albumin 3.8 (3.5-5.0) g/dL Influenza Type A Ag NEGATIVE (NEGATIVE) Influenza Type B Ag NEGATIVE (NEGATIVE) RSV (PCR) NEGATIVE (Negative) 06/10/20 06/10/20 Range/Units 23:16 23:03 WBC 4.4 (4.0-10.5) K/mm3 RBC 3.71 L (4.1-5.6) M/mm3 Hgb 13.0 (12.5-18.0) gm/dl Hct 37.4 L (42-50) % MCV 100.8 H (78-100) fl MCH 35.0 H (26-32) pg MCHC 34.8 (32-36) g/dl RDW 13.2 (11.5-14.0) % Plt Count 221 (150-450) K/mm3 MPV 9.8 (7.5-11.0) fl Gran % 56.0 (36.0-66.0) % Eos # (Auto) 0.11 (0-0.5) Absolute Lymphs (auto) 1.32 (1.0-4.6) Absolute Monos (auto) 0.45 (0.0-1.3) Lymphocytes % 30.3 (24.0-44.0) % Monocytes % 10.3 (0.0-12.0) % Eosinophils % 2.5 (0.00-5.0) % Basophils % 0.9 (0.0-0.4) % Absolute Granulocytes 2.43 (1.4-6.9) Basophils # 0.04 (0-0.4) Sodium (137-145) mmol/L Potassium (3.5-5.1) mmol/L Chloride (98-107) mmol/L Carbon Dioxide (22-30) mmol/L Anion Gap (5-15) MEQ/L BUN (9-20) mg/dL Creatinine (0.66-1.25) mg/dL Estimated GFR ML/MIN Glucose (74-106) mg/dL Lactic Acid 1.7 (0.4-2.0) Calcium (8.4-10.2) mg/dL Magnesium (1.6-2.3) mg/dL Total Bilirubin (0.2-1.3) mg/dL AST (17-59) U/L ALT (0-50) U/L Alkaline Phosphatase (38-126) U/L Troponin I (0.000-0.034) ng/mL NT-Pro-B Natriuret Pep (0-900) pg/mL Serum Total Protein (6.3-8.2) g/dL Albumin (3.5-5.0) g/dL Influenza Type A Ag (NEGATIVE) Influenza Type B Ag (NEGATIVE) RSV (PCR) (Negative) - Progress Progress: improved, re-examined Air Movement: fair Progress Note: 75 years old with COPD/smoker is evaluated for increasing shortness of breath. He is given another breathing treatment on presentation ER. Chest x-ray showed bilateral hyperinflated lungs with chronic changes but no acute findings. P atient continued to improve. EKG showed normal sinus rhythm with no ST elevations. Negative initial troponin. Has normal white count and grossly unremarkable chemistries. I believe patient has COPD exacerbation and is given a dose of antibiotic as well. Discussed with Dr. Curry and patient is being admitted for observation for frequent nebs, steroid and will trend cardiac enzymes. 06/11/20 00:34 Blood Culture(s) Obtained: Yes Antibiotics given: Yes Discussed with : Ciera Will see patient in: hospital (observation) Counseled pt/family regarding: lab results, diagnosis, rad results, smoking cessation - Departure Departure Disposition: Observation Clinical Impression: COPD exacerbation Condition: Stable Critical Care Time: No Referrals: MARCELO MONTAÑO [Primary Care Provider] - Instructions: Chronic Obstructive Pulmonary Disease
[2020-06-10 23:53] LABS: INFLUENZA A NEGATIVE (NEGATIVE); INFLUENZA B NEGATIVE (NEGATIVE); RESPIRATORY SYNCTIAL VIRUS NEGATIVE (Negative)
[2020-06-11 00:12] LABS: ALBUMIN 3.8 g/dL (3.5-5.0); BLOOD UREA NITROGEN 11 mg/dL (9-20); CHLORIDE 99 mmol/L (98-107); Carbon Dioxide 24 mmol/L (22-30); Creatinine 1 0.86 mg/dL (0.66-1.25); Glucose 84 mg/dL (74-106); Potassium 4.3 mmol/L (3.5-5.1); SGOT/AST 36 U/L (17-59); SODIUM 132 mmol/L (137-145); Total Protein 6.4 g/dL (6.3-8.2)
[2020-06-11 00:13] LABS: ALKALINE PHOSPHATASE 79 U/L (38-126); ANION GAP 13.1 MEQ/L (5-15); NT PRO BNP 132 pg/mL (0-900); SGPT/ALT 16 U/L (0-50)
[2020-06-11] MEDS ORDERED: Zofran 4 MG/2 ML VIAL IV PRN (01:21)
[2020-06-11] MEDS ORDERED: TYLENOL 325 MG PO PRN (01:21)
[2020-06-11] MEDS ORDERED: MORPHINE SULFATE 4 MG INJ IV PRN (01:21)
[2020-06-11] MEDS ORDERED: HUMALOG SQ PRN (01:21)
[2020-06-11 01:30] LABS: Appearance CLEAR (CLEAR); Bilirubin NEGATIVE (NEGATIVE); Blood NEGATIVE Ery/ul (0-5); Glucose NEGATIVE (NEGATIVE); Ketones NEGATIVE (NEGATIVE); Leukocyte Esterase NEGATIVE (NEGATIVE); Nitrite NEGATIVE (NEGATIVE); Protein,Urine Dip NEGATIVE (Negative); Specific Gravity 1.005 (1.005-1.025); Urobilinogen NEGATIVE mg/dL (0-1)
[2020-06-11 01:34] LABS: Bacteria NONE SEEN /HPF (NEGATIVE)
[2020-06-11 04:53] LABS: Absolute Neutrophil Ct (ANC) 3.09 (1.4-6.9); BASOPHIL % 0.6 % (0.0-0.4); Basophil (Absolute #) 0.02 (0-0.4); Eosinophil (Absolute #) 0 (0-0.5); Hematocrit 37.2 % (42-50); Hemoglobin 12.7 gm/dl (12.5-18.0); Lymphocyte (Absolute #) 0.35 (1.0-4.6); Mean Cell Volume 102.2 fl (78-100); Mean Corpuscular Hemoglobin 34.9 pg (26-32); Mean Corpuscular Hgb Concent. 34.1 g/dl (32-36); Monocyte (Absolute #) 0.04 (0.0-1.3); Monocytes % 1.1 % (0.0-12.0); Neutrophil % 88.3 % (36.0-66.0); Platelet Count 209 K/mm3 (150-450); Red Blood Count 3.64 M/mm3 (4.1-5.6); Red Cell Distribution Width 13.1 % (11.5-14.0); White Blood Count 3.5 K/mm3 (4.0-10.5)
[2020-06-11 05:16] LABS: ALBUMIN 3.9 g/dL (3.5-5.0); ALKALINE PHOSPHATASE 54 U/L (38-126); ANION GAP 12.7 MEQ/L (5-15); BLOOD UREA NITROGEN 10 mg/dL (9-20); CHLORIDE 100 mmol/L (98-107); Calcium 8.8 mg/dL (8.4-10.2); Carbon Dioxide 24 mmol/L (22-30); Creatinine 1 0.81 mg/dL (0.66-1.25); Glucose 106 mg/dL (74-106); Potassium 4.9 mmol/L (3.5-5.1); SGOT/AST 39 U/L (17-59); SGPT/ALT 17 U/L (0-50); SODIUM 131 mmol/L (137-145); Total Protein 6.6 g/dL (6.3-8.2)
[2020-06-11] MEDS: DUONEB 0.5-3 MG/3 ml Neb IH SCH ×3 (05:42→14:39)
[2020-06-11] MEDS ORDERED: Advair Hfa 115/21 Common canister IH SCH (07:00)
[2020-06-11 08:23] LABS: Slide Review 1 YES
[2020-06-11] MEDS: solu-MEDROL 125 MG IV SCH ×2 (08:52→14:14)
--- NOTE | 2020-06-11 08:57 | XRAY ---
Indication: Pneumonia. History of COPD. Comparison: November 09, 2019. Portable chest remains hyperinflated again with minimal right base atelectasis/scarring and tiny left lung calcified granuloma. Heart is not enlarged. Bony thorax intact again with mild osteopenia and degenerative changes. No new/acute findings. Impression: Stable nonacute hyperinflated chest with chronic features.
[2020-06-11] MEDS ORDERED: Ventolin Hfa MDI IH PRN (09:32)
[2020-06-11] MEDS ORDERED: VENTOLIN COMMON CANISTER IH PRN (09:34)
[2020-06-11] MEDS ORDERED: ENOXAPARIN SODIUM SQ SCH (10:00)
[2020-06-11] MEDS ORDERED: Pepcid 20 MG VIAL IV SCH (10:00)
[2020-06-11] MEDS ORDERED: NON-FORMULARY ITEM (Aspirin [Aspirin] 81 MG) PO SCH (10:00)
[2020-06-11] MEDS ORDERED: NON-FORMULARY ITEM (Nebivolol Hcl [Bystolic] 20 MG) PO SCH (10:00)
[2020-06-11] MEDS ORDERED: ECOTRIN 81 MG PO SCH ×2 (10:00)
[2020-06-11] MEDS ORDERED: Bystolic 5 MG PO SCH (10:00)
[2020-06-11 15:57] VITALS: BP 142/65; PULSE 73; O2SAT 93
[2020-06-11] MEDS ORDERED: ROCEPHIN 1 Gm-D5w 50 ml Bag** 1 G/50 ML IVPB IV SCH (22:00)
[2020-06-11] MEDS ORDERED: Zithromax 500 MG/ 250 ML NaCl Premix 500 MG/250 ML IVPB IV SCH (22:00)
--- NOTE | 2020-06-13 11:40 | PCM.SSS ---
History of Present Illness - Chief Complaint Chief Complaint: COPD EXACERBATION Date: 06/11/20 History of Present Illness: is a 75 year old male, presented to er with 2 days of increasing sob and dry cough, after full evaluation the patient was admitted for treatment of copd exacerbation. - Review of Systems Constitutional: No Fever, No Chills Eyes: No Symptoms Ears, Nose, & Throat: No Symptoms Respiratory: Cough, Short Of Breath, Wheezing Cardiac: No Chest Pain, No Edema, No Syncope Abdominal/Gastrointestinal: No Abdominal Pain, No Nausea, No Vomiting, No Diarrhea Genitourinary Symptoms: No Dysuria Musculoskeletal: No Back Pain, No Neck Pain Skin: No Rash Neurological: No Dizziness, No Focal Weakness, No Sensory Changes Psychological: No Symptoms Endocrine: No Symptoms Hematologic/Lymphatic: No Symptoms Immunological/Allergic: No Symptoms Medications & Allergies Home Medications: Home Medication List Albuterol 8 gm Mdi Hfa [Ventolin Hfa MDI] 1 puff IH Q4H PRN PRN 04/15/19 [History Confirmed 06/11/20] Nebivolol HCl [Bystolic] 20 mg PO DAILY 04/15/19 [History Confirmed 06/11/20] Aspirin 81 mg PO DAILY 06/11/20 [History Confirmed 06/11/20] Azithromycin 250 mg [Zithromax 250 MG TABLET] 250 mg PO ZPACK #6 tablet 06/11/20 [Rx] Cephalexin Mh 500 mg [Keflex 500 mg] 500 mg PO TID 10 Days capsule 06/11/20 [Rx] Prednisone 20 mg [Deltasone 20 mg] 60 mg PO DAILY 5 Days tablet 06/11/20 [Rx] Allergies/Adverse Reactions: Allergies Allergy/AdvReac Type Severity Reaction Status Date / Time No Known Drug Allergies Allergy Verified 06/10/20 22:41 - Past Medical History Neurological History: No Pertinent History ENT History: No Pertinent History Cardiac History: Hypertension Respiratory History: Asthma, COPD, Emphysema Endocrine Medical History: No Pertinent History Musculoskelatal History: No Pertinent History GI Medical History: No Pertinent History History: No Pertinent History Pyscho-Social History: No Pertinent History - Past Surgical History Past Surgical History: No Neuro Surgical History: No Pertinent History Cardiac History: No Pertinent History Respiratory Surgery: No Pertinent History GI Surgical History: No Pertinent History Genitourinary Surgical Hx: No Pertinent History Musculskeletal Surgical Hx: No Pertinent History Male Surgical History: No Pertinent History - Social History Smoking Status: Current every day smoker How long have you smoked: 50 years Exposure to second hand smoke: Yes Alcohol: Daily Drug Use: none - Physical Exam General Appearance: no apparent distress, alert Neurologic Exam: alert, oriented x 3, cooperative, normal mood/affect, nml cerebellar function, nml station & gait, sensation nml, No motor deficits Eye Exam: PERRL/EOMI, eyes nml inspection Ears, Nose, Throat Exam: normal ENT inspection, TMs normal, pharynx normal, moist mucous membranes Neck Exam: normal inspection, non-tender, supple, full range of motion Respiratory Exam: prolonged expirations, wheezing, No respiratory distress Cardiovascular Exam: regular rate/rhythm, normal heart sounds, normal peripheral pulses Gastrointestinal/Abdomen Exam: soft, normal bowel sounds, No tenderness, No mass Back Exam: normal inspection, normal range of motion, No CVA tenderness, No vertebral tenderness Extremity Exam: normal inspection, normal range of motion, pelvis stable Skin Exam: normal color, warm, dry, No rash Lymphatic Exam: No adenopathy Results - Labs Lab/Micro Results: Microbiology 06/10/20 23:16 Blood Culture - Preliminary Blood NO GROWTH TO DATE 06/10/20 23:16 Blood Culture - Preliminary Blood NO GROWTH TO DATE Assessment/Plan (1) COPD exacerbation Status: Acute Assessment & Plan: Pt. will be admitted for frequent nebulizers, iv steroids and iv antibiotics Code(s): J44.1 - CHRONIC OBSTRUCTIVE PULMONARY DISEASE W (ACUTE) EXACERBATION Hospital Summary - Hospital Course Hospital Course: Pt. rapidly turned around and by following am felt good and back to his baseline. He was adament he was wanting to go back home, I asked him to stay until late day but sternly requested discharge about 12 hours after admission, it was noted that the patient did desaturate in the sleeping hours and had previously qualified for home sleep oxygen supplementation. - Vitals & Intake/Output Vital Signs: Vital Signs Temperature 97.8 F 06/11/20 15:55 Pulse Rate 73 06/11/20 15:55 Respiratory Rate 16 06/11/20 15:55 Blood Pressure 142/65 06/11/20 15:55 O2 Sat by Pulse Oximetry 93 L 06/11/20 15:55 Intake & Output: Intake & Output 06/10/20 06/11/20 06/12/20 06/13/20 11:59 11:59 11:59 11:59 Intake Total 360 480 Output Total 400 200 Balance -40 280 Weight 66.2 kg - Lab Result Diagrams: 06/11/20 04:48 06/11/20 04:48 Micro Results-Entire Visit: Microbiology 06/10/20 23:16 Blood Culture - Preliminary Blood NO GROWTH TO DATE 06/10/20 23:16 Blood Culture - Preliminary Blood NO GROWTH TO DATE - Procedures and Test Procedures and Tests throughout Hospitalization: Therapy Orders & Screens 06/10/20 23:07 Respiratory Therapy Assessment DAILY Comment: 06/11/20 01:21 Oxygen Nasal Cannula 3 lpm Comment: 06/11/20 01:38 Peak Expiratory Flow Rate ONCE Comment: Reason For Exam: Diagnosis: COPD EXACERBATION - Discharge Discharge Date: 06/11/20 Disposition: Home, Self-Care Condition: Stable Prescriptions: New Prednisone 20 mg [Deltasone 20 mg] 60 mg PO DAILY 5 Days tablet Cephalexin Mh 500 mg [Keflex 500 mg] 500 mg PO TID 10 Days capsule Azithromycin 250 mg [Zithromax 250 MG TABLET] 250 mg PO ZPACK #6 tablet Continue Nebivolol HCl [Bystolic] 20 mg PO DAILY Albuterol 8 gm Mdi Hfa [Ventolin Hfa MDI] 1 puff IH Q4H PRN PRN PRN Reason: Shortness Of Breath Aspirin 81 mg PO DAILY Instructions: Exacerbation of COPD (DC) Additional Instructions: FOLLOW INSTRUCTIONS GIVEN TO YOU BY RESPIRATORY REGARDING OVERNIGHT PULSE OX STUDY Follow up with: MARCELO MONTAÑO [Primary Care Provider] - 06/18/20 9:30 am
== END 2020-06-11 16:23 | disposition home or self-care (01) ==
LOC: ED 22:25 → MED SURG 06-11 01:19
PROVIDERS: ADMIT Family Medicine; ATTEND Family Medicine
DX: J44.1 Chronic obstructive pulmonary disease with (acute) exacerbation (principal); I10 Essential (primary) hypertension; F17.200 Nicotine dependence, unspecified, uncomplicated
CPT/HCPCS: 36000; 36415; 71045; 80053; 81001; 83605; 83735; 83880; 84484; 85025; 87040; 87631; 93005; 93041; 93268; 94640; 94762; 96365; 96368; 99285; G0378; 96360; J0456; J0696; J1650; J2930; A9270-GY

== ENCOUNTER 2022-08-03 16:47 | Emergency (ER) | payer MEDICARE, OTHER ==
--- NOTE | 2022-08-03 17:26 | ERPHSYRPT ---
- History of Present Illness Time Seen by Provider: 08/03/22 16:55 Source: patient, family Exam Limitations: clinical condition Patient Subjective Stated Complaint: Fall Triage Nursing Assessment: Patient brought into ED per w/c and transferred to bed with assist of 1. Patient A+O X 2, disoriented to time. Patient's skin pink, warm and dry. Patient's son states patient has been having freqent falls. Patient denies pain or discomfort. BLE noted to have 3+ pitting edema. Physician History: This is a cachectic appearing 77-year-old white male who reeks of significant tobacco and presents with history of frequent falls and weakness. Patient is a little disoriented today per his son's report. Patient's son stated he did have to carry him out to the car to get him to come into the emergency department. Patient smokes at least 2 packs of cigarettes a day. He is not oxygen dependent COPD at 4 L of oxygen nasal cannula. He also has a history of hypertension. Patient is also short of breath. However, he specifically states the shortness of breath is no different than usual. He denies chest pain. He denies pain of any kind. He does have significant bilateral lower extremity edema. Timing/Duration: today Severity: moderate Associated Symptoms: shortness of breath, cough, weakness, No chest pain, No headaches Allergies/Adverse Reactions: No Known Drug Allergies Allergy (Verified 08/03/22 16:50) Home Medications: Fluticasone/Umeclidin/Vilanter [Trelegy Ellipta 200-62.5-25] 2 puff IH DAILY 08/03/22 [History] Hx Tetanus, Diphtheria Vaccination/Date Given: Yes Hx Influenza Vaccination/Date Given: No Hx Pneumococcal Vaccination/Date Given: No Immunizations Up to Date: Yes Travel Risk - International Travel Have you traveled outside of the country in past 3 weeks: No - Coronavirus Screening Are you exhibiting any of the following symptoms?: No - Vaccine Status Have you recieved a Covid-19 vaccination: Yes Handbag Stitcher: Unknown - Vaccination Dates Date of 2cond Vaccination (if applicable): na Dates if Unknown: na Comment: states had one last year - Review of Systems Constitutional: Weakness Eyes: No Symptoms Ears, Nose, & Throat: No Symptoms Respiratory: Cough, Dyspnea Cardiac: No Symptoms Abdominal/Gastrointestinal: No Symptoms Genitourinary Symptoms: No Symptoms Musculoskeletal: No Symptoms Skin: Dryness, Other (Significant edema of his lower extremities bilaterally) Neurological: No Symptoms Psychological: No Symptoms Endocrine: No Symptoms Hematologic/Lymphatic: No Symptoms Immunological/Allergic: No Symptoms All Other Systems: Reviewed and Negative - Past Medical History Neurological History: No Pertinent History ENT History: No Pertinent History Cardiac History: Hypertension Respiratory History: Asthma, COPD, Emphysema Endocrine Medical History: No Pertinent History Musculoskeletal History: No Pertinent History GI Medical History: No Pertinent History History: No Pertinent History Psycho-Social History: No Pertinent History - Past Surgical History Past Surgical History: No Neuro Surgical History: No Pertinent History Cardiac: No Pertinent History Respiratory: No Pertinent History Gastrointestinal: No Pertinent History Genitourinary: No Pertinent History Musculoskeletal: No Pertinent History Male Surgical History: No Pertinent History - Social History Smoking Status: Current every day smoker How long have you smoked: 50 years Exposure to second hand smoke: Yes Drug Use: none Patient Lives Alone: No - Nursing Vital Signs Nursing Vital Signs: Initial Vital Signs Temperature 98.8 F 08/03/22 16:54 Pulse Rate 98 H 08/03/22 16:54 Respiratory Rate 20 08/03/22 16:54 Blood Pressure 189/101 08/03/22 16:54 O2 Sat by Pulse Oximetry 99 08/03/22 16:54 Pain Scale Pain Intensity 0 - Physical Exam General Appearance: mild distress, alert, anxiety, cachetic Eye Exam: PERRL/EOMI, eyes nml inspection Ears, Nose, Throat Exam: normal ENT inspection, moist mucous membranes Neck Exam: normal inspection, non-tender, supple, full range of motion Respiratory Exam: normal breath sounds, lungs clear, airway intact, No chest te nderness, No respiratory distress Cardiovascular Exam: regular rate/rhythm, normal heart sounds, normal peripheral pulses Gastrointestinal/Abdomen Exam: soft, normal bowel sounds, No tenderness Rectal Exam: not done Back Exam: normal inspection, normal range of motion, CVA tenderness Extremity Exam: pedal edema (Bilateral lower extremity edema to the knees 2-3+ pitting edema bilaterally), swelling SpO2: 99 - Course Nursing assessment & vital signs reviewed: Yes EKG Interpreted by Me: RATE (83), Sinus Rhythm, LAFB, Right Bundle Branch Block, NORMAL ST-T, Other (No acute ischemic changes. There is a short OR interval on today's EKG.) Ordered Tests: Active Orders 24 hr Category Date Time Status Composite Boat Builder STAT Care 08/03/22 17:28 Active EKG-ER Only STAT Care 08/03/22 17:27 Active IV Insertion STAT Care 08/03/22 17:27 Active Oxygen-ED Only Nasal Cannula 4 lpm Care 08/03/22 17:27 Active CHEST 1 VIEW (PORTABLE) Stat Exams 08/03/22 17:28 Taken CHEST WITH CONTRAST [CT] Stat Exams 08/03/22 19:21 Taken BLOOD CULTURE Stat Lab 08/03/22 18:38 Received CBC W DIFF Stat Lab 08/03/22 17:49 Completed CMP Stat Lab 08/03/22 17:49 Completed CULTURE,SPUTUM Stat Lab 08/03/22 19:06 Ordered D-DIMER QUANTITATIVE Stat Lab 08/03/22 17:49 Completed Lactic Acid Stat Lab 08/03/22 17:48 Completed NT PRO BNP Stat Lab 08/03/22 17:49 Completed TROPONIN Q4H Lab 08/03/22 17:49 Completed TROPONIN Q4H Lab 08/03/22 21:42 Completed TROPONIN Q4H Lab 08/04/22 01:30 Ordered UA W/RFX CULTURE Stat Lab 08/03/22 19:06 Completed Respiratory Therapy Assessment DAILY RT 08/03/22 18:44 Active Medication Summary Discontinued Medications Generic Name Dose Route Start Last Admin Trade Name Freq PRN Reason Stop Dose Admin Albuterol/Ipratropium 3 ml 08/03/22 17:27 08/03/22 18:46 Ipratropium/Albuterol Sulfate 3 Ml Ampul.Neb IH 08/03/22 17:28 3 ml STAT ONE Administration Albuterol/Ipratropium Confirm 08/03/22 18:42 Ipratropium/Albuterol Sulfate 3 Ml Ampul.Neb Administered 08/03/22 18:43 Dose 3 ml IH .STK-MED ONE Methylprednisolone Sodium 0 mg 08/03/22 17:27 08/03/22 18:24 Succinate 125 mg/ Sterile IV 08/03/22 17:28 125 mg Water 2 ml STAT ONE Administration Methylprednisolone Sodium Succinate Confirm 08/03/22 18:23 Methylprednis Sod Succ 125 Mg/2 Ml Vial Administered 08/03/22 18:24 Dose 125 mg .ROUTE .STK-MED ONE Sterile Water Confirm 08/03/22 18:23 Water For Injection,Sterile 10 Ml Vial Administered 08/03/22 18:24 Dose 10 ml IJ .STK-MED ONE Lab/Rad Data: Laboratory Result Diagrams 08/03/22 17:49 08/03/22 17:49 Laboratory Results 08/03/22 08/03/22 08/03/22 Range/Units 21:42 19:06 17:49 WBC (4.0-10.5) x10^3/uL RBC (4.1-5.6) x10^6/uL Hgb (12.5-18.0) g/dL Hct (42-50) % MCV (78-100) fL MCH (26-32) pg MCHC (32-36) g/dL RDW (11.5-14.0) % Plt Count (150-450) x10^3/uL MPV (7.5-11.0) fL Gran % (36.0-66.0) % Immature Gran % (Auto) (0.00-0.4) % Nucleat RBC Rel Count (0.00-0.1) % Eos # (Auto) (0-0.5) x10^3/uL Immature Gran # (Auto) (0.00-0.03) x10^3u/L Absolute Lymphs (auto) (1.0-4.6) x10^3/uL Absolute Monos (auto) (0.0-1.3) x10^3/uL Absolute Nucleated RBC (0.00-0.01) x10^3u/L Lymphocytes % (24.0-44.0) % Monocytes % (0.0-12.0) % Eosinophils % (0.00-5.0) % Basophils % (0.0-0.4) % Absolute Granulocytes (1.4-6.9) x10^3/uL Basophils # (0-0.4) x10^3/uL D-Dimer (0.0-0.50) mg/L Sodium (137-145) mmol/L Potassium (3.5-5.1) mmol/L Chloride (98-107) mmol/L Carbon Dioxide (22-30) mmol/L Anion Gap (5-15) MEQ/L BUN (9-20) mg/dL Creatinine (0.66-1.25) mg/dL Estimated GFR ML/MIN Glucose (74-106) mg/dL Lactic Acid (0.4-2.0) Calcium (8.4-10.2) mg/dL Total Bilirubin (0.2-1.3) mg/dL AST (17-59) U/L ALT (0-50) U/L Alkaline Phosphatase (38-126) U/L Troponin I 0.031 (0.000-0.034) ng/mL NT-Pro-B Natriuret Pep (0-1800) pg/mL Serum Total Protein (6.3-8.2) g/dL Albumin (3.5-5.0) g/dL Urinalys Dipstick Clnc MAIN LAB Urine Color YELLOW (YELLOW) Urine Appearance CLEAR (CLEAR) Urine pH 7.0 (5-6) Ur Specific [place] 1.020 (1.005-1.025) POC Urine Protein Conf NEGATIVE (Negative) Urine Ketones NEGATIVE (NEGATIVE) Urine Nitrite NEGATIVE (NEGATIVE) Urine Bilirubin NEGATIVE (NEGATIVE) Urine Urobilinogen 0.2 (0-1) mg/dL Urine Leukocytes NEGATIVE (NEGATIVE) Urine WBC (Auto) 0-2 (0-5) /HPF Urine RBC (Auto) NONE (0-2) /HPF U Hyaline Cast (Auto) 0-2 (0-2) /LPF U Epithel Cells (Auto) RARE (FEW) /HPF Urine Bacteria (Auto) NONE (NEGATIVE) /HPF Urine RBC NEGATIVE (0-5) Tarun/ul Urine Mucus (Auto) SLIGHT (NEGATIVE) /HPF Ur Culture Indicated? NO Urine Glucose NEGATIVE (NEGATIVE) mg/dL Influenza Type A Ag NEGATIVE (NEGATIVE) Influenza Type B Ag NEGATIVE (NEGATIVE) RSV (PCR) NEGATIVE (Negative) SARS-CoV-2 (PCR) NEGATIVE (NEGATIVE) 08/03/22 08/03/22 08/03/22 Range/Units 17:49 17:49 17:49 WBC (4.0-10.5) x10^3/uL RBC (4.1-5.6) x10^6/uL Hgb (12.5-18.0) g/dL Hct (42-50) % MCV (78-100) fL MCH (26-32) pg MCHC (32-36) g/dL RDW (11.5-14.0) % Plt Count (150-450) x10^3/uL MPV (7.5-11.0) fL Gran % (36.0-66.0) % Immature Gran % (Auto) (0.00-0.4) % Nucleat RBC Rel Count (0.00-0.1) % Eos # (Auto) (0-0.5) x10^3/uL Immature Gran # (Auto) (0.00-0.03) x10^3u/L Absolute Lymphs (auto) (1.0-4.6) x10^3/uL Absolute Monos (auto) (0.0-1.3) x10^3/uL Absolute Nucleated RBC (0.00-0.01) x10^3u/L Lymphocytes % (24.0-44.0) % Monocytes % (0.0-12.0) % Eosinophils % (0.00-5.0) % Basophils % (0.0-0.4) % Absolute Granulocytes (1.4-6.9) x10^3/uL Basophils # (0-0.4) x10^3/uL D-Dimer 3.82 H* (0.0-0.50) mg/L Sodium 134 L (137-145) mmol/L Potassium 4.2 (3.5-5.1) mmol/L Chloride 98 (98-107) mmol/L Carbon Dioxide 30 (22-30) mmol/L Anion Gap 10.7 (5-15) MEQ/L BUN 10 (9-20) mg/dL Creatinine 0.67 (0.66-1.25) mg/dL Estimated GFR > 60.0 ML/MIN Glucose 86 (74-106) mg/dL Lactic Acid (0.4-2.0) Calcium 8.8 (8.4-10.2) mg/dL Total Bilirubin 0.60 (0.2-1.3) mg/dL AST 67 H (17-59) U/L ALT 30 (0-50) U/L Alkaline Phosphatase 131 H (38-126) U/L Troponin I 0.041 H* (0.000-0.034) ng/mL NT-Pro-B Natriuret Pep 140 (0-1800) pg/mL Serum Total Protein 6.9 (6.3-8.2) g/dL Albumin 3.9 (3.5-5.0) g/dL Urinalys Dipstick Clnc Urine Color (YELLOW) Urine Appearance (CLEAR) Urine pH (5-6) Ur Specific [place] (1.005-1.025) POC Urine Protein Conf (Negative) Urine Ketones (NEGATIVE) Urine Nitrite (NEGATIVE) Urine Bilirubin (NEGATIVE) Urine Urobilinogen (0-1) mg/dL Urine Leukocytes (NEGATIVE) Urine WBC (Auto) (0-5) /HPF Urine RBC (Auto) (0-2) /HPF U Hyaline Cast (Auto) (0-2) /LPF U Epithel Cells (Auto) (FEW) /HPF Urine Bacteria (Auto) (NEGATIVE) /HPF Urine RBC (0-5) Tarun/ul Urine Mucus (Auto) (NEGATIVE) /HPF Ur Culture Indicated? Urine Glucose (NEGATIVE) mg/dL Influenza Type A Ag (NEGATIVE) Influenza Type B Ag (NEGATIVE) RSV (PCR) (Negative) SARS-CoV-2 (PCR) (NEGATIVE) 08/03/22 08/03/22 Range/Units 17:49 17:48 WBC 6.1 (4.0-10.5) x10^3/uL RBC 3.61 L (4.1-5.6) x10^6/uL Hgb 12.4 L (12.5-18.0) g/dL Hct 37.9 L (42-50) % MCV 105.0 H (78-100) fL MCH 34.3 H (26-32) pg MCHC 32.7 (32-36) g/dL RDW 13.3 (11.5-14.0) % Plt Count 205 (150-450) x10^3/uL MPV 9.5 (7.5-11.0) fL Gran % 75.7 H (36.0-66.0) % Immature Gran % (Auto) 0.3 (0.00-0.4) % Nucleat RBC Rel Count 0.0 (0.00-0.1) % Eos # (Auto) 0.02 (0-0.5) x10^3/uL Immature Gran # (Auto) 0.02 (0.00-0.03) x10^3u/L Absolute Lymphs (auto) 0.75 L (1.0-4.6) x10^3/uL Absolute Monos (auto) 0.64 (0.0-1.3) x10^3/uL Absolute Nucleated RBC 0.00 (0.00-0.01) x10^3u/L Lymphocytes % 12.2 L (24.0-44.0) % Monocytes % 10.4 (0.0-12.0) % Eosinophils % 0.3 (0.00-5.0) % Basophils % 1.1 (0.0-0.4) % Absolute Granulocytes 4.63 (1.4-6.9) x10^3/uL Basophils # 0.07 (0-0.4) x10^3/uL D-Dimer (0.0-0.50) mg/L Sodium (137-145) mmol/L Potassium (3.5-5.1) mmol/L Chloride (98-107) mmol/L Carbon Dioxide (22-30) mmol/L Anion Gap (5-15) MEQ/L BUN (9-20) mg/dL Creatinine (0.66-1.25) mg/dL Estimated GFR ML/MIN Glucose (74-106) mg/dL Lactic Acid 1.6 (0.4-2.0) Calcium (8.4-10.2) mg/dL Total Bilirubin (0.2-1.3) mg/dL AST (17-59) U/L ALT (0-50) U/L Alkaline Phosphatase (38-126) U/L Troponin I (0.000-0.034) ng/mL NT-Pro-B Natriuret Pep (0-1800) pg/mL Serum Total Protein (6.3-8.2) g/dL Albumin (3.5-5.0) g/dL Urinalys Dipstick Clnc Urine Color (YELLOW) Urine Appearance (CLEAR) Urine pH (5-6) Ur Specific [place] (1.005-1.025) POC Urine Protein Conf (Negative) Urine Ketones (NEGATIVE) Urine Nitrite (NEGATIVE) Urine Bilirubin (NEGATIVE) Urine Urobilinogen (0-1) mg/dL Urine Leukocytes (NEGATIVE) Urine WBC (Auto) (0-5) /HPF Urine RBC (Auto) (0-2) /HPF U Hyaline Cast (Auto) (0-2) /LPF U Epithel Cells (Auto) (FEW) /HPF Urine Bacteria (Auto) (NEGATIVE) /HPF Urine RBC (0-5) Tarun/ul Urine Mucus (Auto) (NEGATIVE) /HPF Ur Culture Indicated? Urine Glucose (NEGATIVE) mg/dL Influenza Type A Ag (NEGATIVE) Influenza Type B Ag (NEGATIVE) RSV (PCR) (Negative) SARS-CoV-2 (PCR) (NEGATIVE) - Progress Progress Note: 08/03/22 22:24 Medical decision making: I did review this case with Dr. Sandy. The patient does not have evidence of pulmonary embolus or pneumonia on CT of the chest. There is evidence of mucous plugging versus bronchial tumor. This needs further evaluation as an outpatient. Patient's initial troponin was slightly elevated. The repeat 3-hour troponin is normal. Patient has no cardiac history there is been diagnosed in the past. He has had no chest pain the entire time that he has been here and had no complaints of chest pain prior to arrival. He does have some weakness in his legs and what appears to be edema. However his BNP and renal function are within normal limits. Because of all these findings, Dr. Sandy and I did not feel that the patient needs to be placed in observation or admitted to the hospital or transferred to another facility. Patient can be discharged to home. He will call his primary care provider tomorrow morning and make arrangements for follow-up appointment and referral to a production control technologist for a bronchoscopy Discussed with .: Hung Counseled pt/family regarding: lab results, diagnosis, need for follow-up, rad results, smoking cessation - Departure Departure Disposition: Home Clinical Impression: Shortness of breath, Weakness, Endobronchial mass Condition: Stable Critical Care Time: No Referrals: MARCELO MONTAÑO [Primary Care Provider] - Follow up/PCP as directed Additional Instructions: Stop smoking. Drink plenty of fluids. Take your medications as prescribed. Wear your oxygen as prescribed. Call your primary care physician tomorrow m orning for further evaluation management and referral to a production control technologist for bronchoscopy. Discussed with your primary care doctor the issue of frequent falls and weakness.
[2022-08-03] MEDS ORDERED: solu-MEDROL 125 MG, Sterile H2O 10 ml 2 ML IV ONE ×2 (17:27)
[2022-08-03] MEDS ORDERED: DUONEB 0.5-3 MG/3 ml Neb IH ONE ×2 (17:27→18:42)
[2022-08-03 17:52] LABS: Absolute Neutrophil Ct (ANC) 4.63 x10^3/uL (1.4-6.9); Basophil (Absolute #) 0.07 x10^3/uL (0-0.4); Eosinophil % 0.3 % (0.00-5.0); Eosinophil (Absolute #) 0.02 x10^3/uL (0-0.5); Hematocrit 37.9 % (42-50); Hemoglobin 12.4 g/dL (12.5-18.0); Lymphocyte (Absolute #) 0.75 x10^3/uL (1.0-4.6); Lymphocytes % 12.2 % (24.0-44.0); Mean Corpuscular Hemoglobin 34.3 pg (26-32); Mean Corpuscular Hgb Concent. 32.7 g/dL (32-36); Mean Platelet Volume 9.5 fL (7.5-11.0); Monocyte (Absolute #) 0.64 x10^3/uL (0.0-1.3); Monocytes % 10.4 % (0.0-12.0); Neutrophil % 75.7 % (36.0-66.0); Platelet Count 205 x10^3/uL (150-450); Red Blood Count 3.61 x10^6/uL (4.1-5.6); Red Cell Distribution Width 13.3 % (11.5-14.0); White Blood Count 6.1 x10^3/uL (4.0-10.5)
[2022-08-03 18:18] LABS: ALBUMIN 3.9 g/dL (3.5-5.0); ALKALINE PHOSPHATASE 131 U/L (38-126); ANION GAP 10.7 MEQ/L (5-15); BLOOD UREA NITROGEN 10 mg/dL (9-20); CHLORIDE 98 mmol/L (98-107); Calcium 8.8 mg/dL (8.4-10.2); Carbon Dioxide 30 mmol/L (22-30); Creatinine 1 0.67 mg/dL (0.66-1.25); EST GLOMERULAR FILTRATION RATE > 60.0 ML/MIN; Glucose 86 mg/dL (74-106); NT PRO BNP 140 pg/mL (0-1800); Potassium 4.2 mmol/L (3.5-5.1); SGOT/AST 67 U/L (17-59); SGPT/ALT 30 U/L (0-50); SODIUM 134 mmol/L (137-145); Total Protein 6.9 g/dL (6.3-8.2)
[2022-08-03] MEDS ORDERED: Sterile H2O 10 ml IJ ONE (18:23)
[2022-08-03] MEDS ORDERED: solu-MEDROL ONE (18:23)
[2022-08-03 18:31] LABS: INFLUENZA A NEGATIVE (NEGATIVE); INFLUENZA B NEGATIVE (NEGATIVE); RESPIRATORY SYNCTIAL VIRUS NEGATIVE (Negative); SARS-CoV-2 Xpert Express NEGATIVE (NEGATIVE)
[2022-08-03 19:26] LABS: Appearance CLEAR (CLEAR); Bilirubin NEGATIVE (NEGATIVE); Dipstick done @ ? MAIN LAB; Epithelial Cells RARE /HPF (FEW); Glucose NEGATIVE (NEGATIVE); Hyaline Casts 0-2 /LPF (0-2); Ketones NEGATIVE (NEGATIVE); Mucus SLIGHT /HPF (NEGATIVE); Nitrite NEGATIVE (NEGATIVE); Protein,Urine Dip NEGATIVE (Negative); RBC NEGATIVE Ery/ul (0-5); Urine Cultured Indicated? NO; Urobilinogen 0.2 mg/dL (0-1); WBC 0-2 /HPF (0-5)
[2022-08-03 21:09] VITALS: PULSE 80
[2022-08-03 22:08] VITALS: BP 172/73
[2022-08-03 22:29] VITALS: O2SAT 99
--- NOTE | 2022-08-04 08:44 | XRAY ---
Indication: Short of breath. Cough. Comparison: June 10, 2020 Portable chest again demonstrates COPD and tiny left lung calcified granuloma. Remaining heart and lungs unremarkable. Bony thorax intact again with osteopenia and degenerative changes. No new/acute findings.
--- NOTE | 2022-08-04 08:44 | XRAY ---
Indication: Short of breath, weakness, shaking, and elevated d-dimer. Multiple contiguous axial images obtained through the chest using 80 cc Isovue 370 contrast and PE protocol. Comparison: August 23, 2020 Good opacification of the pulmonary arteries to include the lobar and segmental branches. No pulmonary embolus. Heart not enlarged. No pathologic mediastinal/hilar lymphadenopathy. Mid to distal esophagus is now fluid distended favoring gastroesophageal reflux. Lungs again demonstrates diffuse pulmonary emphysema with minimal scattered fibrosis/scarring and small left lower lobe calcified granuloma. Segmental branches of the right lower and less degree left lower lobes demonstrates new occluding intraluminal opacities greatest in the posterior medial branches either mucous plugging versus endobronchial lesions. Subsequent mild postobstructive atelectasis involving the posterior lobes, right greater than left. No suspicious pulmonary mass, infiltrate, effusion, or pneumothorax. Bony thorax intact again with osteopenia and mild degenerative changes throughout the spine. Limited upper abdomen demonstrates fatty liver. Impression: 1. Continued negative pulmonary embolus. 2. New bilateral lower lobe mucous plugging versus endobronchial lesions, right greater than left. Subsequent mild postobstructive atelectasis. 3. New fluid distended esophagus favoring GERD. Given above lung findings, rule out aspiration. 4. Chronic findings including pulmonary emphysema, scattered fibrosis/scarring, chronic bony findings, and old granulomatous disease.
== END 2022-08-03 22:58 | disposition home or self-care (01) ==
LOC: ED 16:47
DX: R93.3 Abnormal findings on diagnostic imaging of other parts of digestive tract (principal); R06.02 Shortness of breath; R53.1 Weakness; Z91.81 History of falling; R41.0 Disorientation, unspecified; R60.0 Localized edema; I10 Essential (primary) hypertension; J43.9 Emphysema, unspecified; Z72.0 Tobacco use; Z99.81 Dependence on supplemental oxygen; Z79.899 Other long term (current) drug therapy
CPT/HCPCS: 0241U; 36000; 36415; 71045; 71260; 80053; 81015; 83605; 83880; 84484; 85025; 85379; 87040; 93005; 93041; 94640; 96374; 99284; J2930; A9270-GY

== ENCOUNTER 2022-10-04 23:57 | Emergency (ER) | payer MEDICARE, OTHER ==
[2022-10-05] MEDS ORDERED: solu-MEDROL 125 MG, Sterile H2O 10 ml 2 ML IV ONE ×2 (00:16)
[2022-10-05] MEDS ORDERED: ROCEPHIN 2 Gm-D5w 50ML BAG** 2 G/50 ML IVPB IV STA (00:17)
[2022-10-05] MEDS ORDERED: DUONEB 0.5-3 MG/3 ml Neb IH ONE ×2 (00:17→00:35)
[2022-10-05] MEDS ORDERED: Zithromax 500 MG/ 250 ML NaCl Premix 500 MG/250 ML IVPB IV STA (00:17)
--- NOTE | 2022-10-05 00:23 | ERPHSYRPT ---
- History of Present Illness Source: patient Exam Limitations: no limitations Timing/Duration: today Activities at Onset: none Severity of Dyspnea-Max: moderate Severity of Dyspnea-Current: mild Possible Cause: occasional episodes Modifying Factors: Improves With: activity Associated Symptoms: cough, edema, ankle swelling, No fever, No calf pain, No painful breathing Hx Tetanus, Diphtheria Vaccination/Date Given: Yes Hx Influenza Vaccination/Date Given: No Hx Pneumococcal Vaccination/Date Given: No <SIXTO CID - Last Filed: 10/05/22 01:19> <RICKI HIDALGO - Last Filed: 10/05/22 08:04> - History of Present Illness Time Seen by Provider: 10/05/22 00:16 Physician History: Patient is a 77-year-old male with a history of COPD current smoker on oxygen 24 hours a day history of emphysema presents to our ED for evaluation of shortness of breath. Patient states he has been chronically short of breath. Patient states that his legs have started to swell over the past several months. He has not had a chance to follow-up with his primary doctor regarding this leg swelling. Patient states his shortness of breath became acutely worse today in spite of his usual oxygen supplementation. No associated chest pain. Symptoms are progressive. Symptoms are moderate in intensity. No specific worsening improving factors. No fever. No trauma. Patient voices no other complaints or concerns at this time. Portions of this note were created with voice recognition technology. There may be grammatical, spelling, punctuation or sound alike errors (SIXTO CID) Allergies/Adverse Reactions: No Known Drug Allergies Allergy (Verified 10/05/22 01:46) Home Medications: Fluticasone/Umeclidin/Vilanter [Trelegy Ellipta 200-62.5-25] 2 puff IH DAILY 08/03/22 [History] Travel Risk - Vaccine Status Have you recieved a Covid-19 vaccination: Yes Licensed Massage Practitioner: Unknown - Vaccination Dates Date of 2cond Vaccination (if applicable): na Dates if Unknown: na Comment: states had one last year <SIXTO CID - Last Filed: 10/05/22 01:19> - Review of Systems Constitutional: No Symptoms, No Fever, No Chills Eyes: No Symptoms Ears, Nose, & Throat: No Symptoms Respiratory: No Symptoms, No Cough, No Dyspnea Cardiac: No Symptoms, No Chest Pain, No Edema, No Syncope Abdominal/Gastrointestinal: No Symptoms, No Abdominal Pain, No Nausea, No Vomiti ng, No Diarrhea Genitourinary Symptoms: No Symptoms, No Dysuria Musculoskeletal: No Symptoms, No Back Pain, No Neck Pain Skin: No Symptoms, No Rash Neurological: No Symptoms, No Dizziness, No Focal Weakness, No Sensory Changes Psychological: No Symptoms Endocrine: No Symptoms Hematologic/Lymphatic: No Symptoms Immunological/Allergic: No Symptoms All Other Systems: Reviewed and Negative <SIXTO CID Filed: 10/05/22 01:19> - Past Medical History Neurological History: No Pertinent History ENT History: No Pertinent History Cardiac History: Hypertension Respiratory History: Asthma, COPD, Emphysema Endocrine Medical History: No Pertinent History Musculoskeletal History: No Pertinent History GI Medical History: No Pertinent History History: No Pertinent History Psycho-Social History: No Pertinent History - Past Surgical History Past Surgical History: No Neuro Surgical History: No Pertinent History Cardiac: No Pertinent History Respiratory: No Pertinent History Gastrointestinal: No Pertinent History Genitourinary: No Pertinent History Musculoskeletal: No Pertinent History Male Surgical History: No Pertinent History - Social History Smoking Status: Current every day smoker How long have you smoked: 50 years Exposure to second hand smoke: Yes Drug Use: none Patient Lives Alone: No <SIXTO CID Filed: 10/05/22 01:19> - Physical Exam General Appearance: mild distress, alert Eye Exam: PERRL/EOMI Ears, Nose, Throat Exam: hearing grossly normal, normal ENT inspection, normal pharynx Neck Exam: normal inspection, non-tender, supple, full range of motion Respiratory Exam: diminished breath sounds, rhonchi, wheezing Cardiovascular/Chest Exam: normal heart sounds, regular rate/rhythm Abdominal/Gastrointestinal Exam: soft, normal bowel sounds, No tenderness, No distention, No mass Extremity Exam: non-tender, normal range of motion, normal inspection, no calf tenderness, no pedal edema, swelling (Bilateral lower extremity pitting edema patient states is new over the past several months.) Neurologic Exam: alert, oriented x 3, cooperative, aml analyst II-XII nml as tested, sensation nml, No motor deficits Skin Exam: normal color, warm, No dry Lymphatic Exam: No adenopathy SpO2 Interpretation: normal SpO2: 99 O2 Delivery: Nasal Cannula <SIXTO CID - Last Filed: 10/05/22 01:19> - Nursing Vital Signs Nursing Vital Signs: Initial Vital Signs Temperature 98.7 F 10/04/22 23:58 Pulse Rate 85 10/04/22 23:58 Respiratory Rate 24 10/04/22 23:58 Blood Pressure 172/94 10/04/22 23:58 O2 Sat by Pulse Oximetry 99 10/04/22 23:58 Pain Scale Pain Intensity 2 - Course Nursing assessment & vital signs reviewed: Yes EKG Interpreted by Me: RATE (84), Sinus Rhythm, NORMAL AXIS, NORMAL INTERVALS, Right Bundle Branch Block <SIXTO CID - Last Filed: 10/05/22 01:19> Ordered Tests: Active Orders 24 hr Category Date Time Status National Facilities Manager STAT Care 10/05/22 00:14 Active EKG-ER Only STAT Care 10/05/22 00:14 Active IV Insertion STAT Care 10/05/22 00:14 Active Pulse Oximetry (ED) STAT Care 10/05/22 00:14 Active CHEST 1 VIEW (PORTABLE) Stat Exams 10/05/22 00:14 Taken BLOOD CULTURE Stat Lab 10/05/22 00:30 Received BNP [NT PRO BNP] Stat Lab 10/05/22 00:16 Completed CBC W DIFF Stat Lab 10/05/22 00:14 Completed CMP Stat Lab 10/05/22 00:15 Completed NT PRO BNP Stat Lab 10/05/22 00:15 Completed TROPONIN Q4H Lab 10/05/22 00:15 Completed TROPONIN Q4H Lab 10/05/22 04:18 Completed TROPONIN Q4H Lab 10/05/22 08:15 Ordered Respiratory Therapy Assessment DAILY RT 10/05/22 00:51 Active Transfer Order Routine Transfer 10/05/22 Ordered Medication Summary Discontinued Medications Generic Name Dose Route Start Last Admin Trade Name Freq PRN Reason Stop Dose Admin Albuterol/Ipratropium 3 ml 10/05/22 00:17 10/05/22 00:51 Ipratropium/Albuterol Sulfate 3 Ml Ampul.Neb IH 10/05/22 00:18 3 ml STAT ONE Administration Albuterol/Ipratropium Confirm 10/05/22 00:35 Ipratropium/Albuterol Sulfate 3 Ml Ampul.Neb Administered 10/05/22 00:36 Dose 3 ml IH .STK-MED ONE Methylprednisolone Sodium 0 mg 10/05/22 00:16 10/05/22 00:51 Succinate 125 mg/ Sterile IV 10/05/22 00:17 125 mg Water 2 ml STAT ONE Administration Ceftriaxone Sodium/Dextrose 2 g in 50 mls @ 100 mls/hr 10/05/22 00:17 10/05/22 07:18 Rocephin 2 Gm-D5w 50ml Bag IV 10/05/22 00:46 Infused STAT STA Infusion Azithromycin 500 mg in 250 mls @ 250 mls/hr 10/05/22 00:17 10/05/22 07:18 Zithromax 500 Mg/ 250 Ml Nacl Premix IV 10/05/22 01:16 Infused STAT STA Infusion Ceftriaxone Sodium/Dextrose Confirm 10/05/22 01:03 Rocephin 2 Gm-D5w 50ml Bag Administered 10/05/22 01:04 Dose 2 g in 50 mls @ ud IV .STK-MED ONE Azithromycin Confirm 10/05/22 01:11 Zithromax 500 Mg/ 250 Ml Nacl Premix Administered 10/05/22 01:12 Dose 500 mg in 250 mls @ ud IV .STK-MED ONE Methylprednisolone Sodium Succinate Confirm 10/05/22 00:47 Methylprednis Sod Succ 125 Mg/2 Ml Vial Administered 10/05/22 00:48 Dose 125 mg .ROUTE .STK-MED ONE Sterile Water Confirm 10/05/22 00:47 Water For Injection,Sterile 10 Ml Vial Administered 10/05/22 00:48 Dose 10 ml IJ .STK-MED ONE Lab/Rad Data: Laboratory Result Diagrams 10/05/22 00:14 10/05/22 00:15 Laboratory Results 10/05/22 10/05/22 10/05/22 Range/Units 04:18 00:43 00:16 WBC (4.0-10.5) x10^3/uL RBC (4.1-5.6) x10^6/uL Hgb (12.5-18.0) g/dL Hct (42-50) % MCV (78-100) fL MCH (26-32) pg MCHC (32-36) g/dL RDW (11.5-14.0) % Plt Count (150-450) x10^3/uL MPV (7.5-11.0) fL Gran % (36.0-66.0) % Immature Gran % (Auto) (0.00-0.4) % Nucleat RBC Rel Count (0.00-0.1) % Eos # (Auto) (0-0.5) x10^3/uL Immature Gran # (Auto) (0.00-0.03) x10^3u/L Absolute Lymphs (auto) (1.0-4.6) x10^3/uL Absolute Monos (auto) (0.0-1.3) x10^3/uL Absolute Nucleated RBC (0.00-0.01) x10^3u/L Lymphocytes % (24.0-44.0) % Monocytes % (0.0-12.0) % Eosinophils % (0.00-5.0) % Basophils % (0.0-0.4) % Absolute Granulocytes (1.4-6.9) x10^3/uL Basophils # (0-0.4) x10^3/uL Sodium (137-145) mmol/L Potassium (3.5-5.1) mmol/L Chloride (98-107) mmol/L Carbon Dioxide (22-30) mmol/L Anion Gap (5-15) MEQ/L BUN (9-20) mg/dL Creatinine (0.66-1.25) mg/dL Estimated GFR ML/MIN Glucose (74-106) mg/dL Calcium (8.4-10.2) mg/dL Total Bilirubin (0.2-1.3) mg/dL AST (17-59) U/L ALT (0-50) U/L Alkaline Phosphatase (38-126) U/L Troponin I < 0.012 (0.000-0.034) ng/mL NT-Pro-B Natriuret Pep 230 (0-1800) pg/mL Serum Total Protein (6.3-8.2) g/dL Albumin (3.5-5.0) g/dL Influenza Type A Ag NEGATIVE (NEGATIVE) Influenza Type B Ag NEGATIVE (NEGATIVE) RSV (PCR) NEGATIVE (Negative) SARS-CoV-2 (PCR) NEGATIVE (NEGATIVE) 10/05/22 10/05/22 10/05/22 Range/Units 00:15 00:15 00:14 WBC 7.5 (4.0-10.5) x10^3/uL RBC 3.26 L (4.1-5.6) x10^6/uL Hgb 11.1 L (12.5-18.0) g/dL Hct 34.2 L (42-50) % MCV 104.9 H (78-100) fL MCH 34.0 H (26-32) pg MCHC 32.5 (32-36) g/dL RDW 15.6 H (11.5-14.0) % Plt Count 240 (150-450) x10^3/uL MPV 9.0 (7.5-11.0) fL Gran % 69.7 H (36.0-66.0) % Immature Gran % (Auto) 1.1 H (0.00-0.4) % Nucleat RBC Rel Count 0.0 (0.00-0.1) % Eos # (Auto) 0.03 (0-0.5) x10^3/uL Immature Gran # (Auto) 0.08 H (0.00-0.03) x10^3u/L Absolute Lymphs (auto) 1.37 (1.0-4.6) x10^3/uL Absolute Monos (auto) 0.69 (0.0-1.3) x10^3/uL Absolute Nucleated RBC 0.00 (0.00-0.01) x10^3u/L Lymphocytes % 18.3 L (24.0-44.0) % Monocytes % 9.2 (0.0-12.0) % Eosinophils % 0.4 (0.00-5.0) % Basophils % 1.3 (0.0-0.4) % Absolute Granulocytes 5.23 (1.4-6.9) x10^3/uL Basophils # 0.10 (0-0.4) x10^3/uL Sodium 134 L (137-145) mmol/L Potassium 4.1 (3.5-5.1) mmol/L Chloride 99 (98-107) mmol/L Carbon Dioxide 31 H (22-30) mmol/L Anion Gap 8.2 (5-15) MEQ/L BUN 14 (9-20) mg/dL Creatinine 0.56 L (0.66-1.25) mg/dL Estimated GFR > 60.0 ML/MIN Glucose 84 (74-106) mg/dL Calcium 8.1 L (8.4-10.2) mg/dL Total Bilirubin 0.40 (0.2-1.3) mg/dL AST 73 H (17-59) U/L ALT 29 (0-50) U/L Alkaline Phosphatase 122 (38-126) U/L Troponin I < 0.012 (0.000-0.034) ng/mL NT-Pro-B Natriuret Pep 227 (0-1800) pg/mL Serum Total Protein 6.6 (6.3-8.2) g/dL Albumin 3.7 (3.5-5.0) g/dL Influenza Type A Ag (NEGATIVE) Influenza Type B Ag (NEGATIVE) RSV (PCR) (Negative) SARS-CoV-2 (PCR) (NEGATIVE) - Progress Progress: improved Air Movement: good Blood Culture(s) Obtained: Yes Antibiotics given: Yes Discussed with Dr.: Laurie Will see patient in: hospital (observation) Counseled pt/family regarding: lab results, diagnosis, rad results <SIXTO CID - Last Filed: 10/05/22 01:19> - Progress Progress Note: Case discussed with Dr. Crawford who accepts admission to observation. Patient will stay in our ED during his observation. As there are no beds available on the floor at the present time. Patient stable. Patient received steroids breathing treatment blood cultures obtained. Antibiotics administered. Plan of care discussed the patient. He agrees to admission at [facility] for further evaluation and treatment. Portions of this note were created with voice recognition technology. There may be grammatical, spelling, punctuation or sound alike errors 10/05/22 01:20 (SIXTO CID) - Departure Departure Disposition: Observation Critical Care Time: No <SIXTO CID - Last Filed: 10/05/22 01:19> - Departure Departure Disposition: AMA (Arrangements were made for admission to the hospital patient was agreeable however after being in the ER waiting for a bed he decided he was feeling much better and would go home and he would sign out AMA.) <RICKI HIDALGO - Last Filed: 10/05/22 08:04> - Departure Clinical Impression: COPD exacerbation, Megaloblastic anemia Condition: Stable Referrals: MARCELO MONTAÑO [Primary Care Provider] - Follow up/PCP as directed Instructions: Chronic Obstructive Pulmonary Disease
[2022-10-05 00:34] LABS: Absolute Neutrophil Ct (ANC) 5.23 x10^3/uL (1.4-6.9); Eosinophil % 0.4 % (0.00-5.0); Eosinophil (Absolute #) 0.03 x10^3/uL (0-0.5); Hematocrit 34.2 % (42-50); Hemoglobin 11.1 g/dL (12.5-18.0); Lymphocyte (Absolute #) 1.37 x10^3/uL (1.0-4.6); Lymphocytes % 18.3 % (24.0-44.0); Mean Cell Volume 104.9 fL (78-100); Mean Corpuscular Hgb Concent. 32.5 g/dL (32-36); Monocyte (Absolute #) 0.69 x10^3/uL (0.0-1.3); Monocytes % 9.2 % (0.0-12.0); Neutrophil % 69.7 % (36.0-66.0); Platelet Count 240 x10^3/uL (150-450); Red Blood Count 3.26 x10^6/uL (4.1-5.6); Red Cell Distribution Width 15.6 % (11.5-14.0); White Blood Count 7.5 x10^3/uL (4.0-10.5)
[2022-10-05] MEDS ORDERED: solu-MEDROL ONE (00:47)
[2022-10-05] MEDS ORDERED: Sterile H2O 10 ml IJ ONE (00:47)
[2022-10-05 01:00] LABS: ALBUMIN 3.7 g/dL (3.5-5.0); ALKALINE PHOSPHATASE 122 U/L (38-126); ANION GAP 8.2 MEQ/L (5-15); BLOOD UREA NITROGEN 14 mg/dL (9-20); CHLORIDE 99 mmol/L (98-107); Calcium 8.1 mg/dL (8.4-10.2); Carbon Dioxide 31 mmol/L (22-30); Creatinine 1 0.56 mg/dL (0.66-1.25); EST GLOMERULAR FILTRATION RATE > 60.0 ML/MIN; Glucose 84 mg/dL (74-106); NT PRO BNP 227 pg/mL (0-1800); Potassium 4.1 mmol/L (3.5-5.1); SGOT/AST 73 U/L (17-59); SGPT/ALT 29 U/L (0-50); SODIUM 134 mmol/L (137-145); Total Protein 6.6 g/dL (6.3-8.2)
[2022-10-05] MEDS ORDERED: ROCEPHIN 2 Gm-D5w 50ML BAG** 2 G/50 ML IVPB IV ONE (01:03)
[2022-10-05] MEDS ORDERED: Zithromax 500 MG/ 250 ML NaCl Premix 500 MG/250 ML IVPB IV ONE (01:11)
[2022-10-05 01:25] LABS: INFLUENZA A NEGATIVE (NEGATIVE); INFLUENZA B NEGATIVE (NEGATIVE); RESPIRATORY SYNCTIAL VIRUS NEGATIVE (Negative); SARS-CoV-2 Xpert Express NEGATIVE (NEGATIVE)
[2022-10-05 07:39] VITALS: BP 151/98; PULSE 66; O2SAT 98
--- NOTE | 2022-10-05 09:05 | XRAY ---
Indication: Short of breath. Comparison: August 03, 2022 Portable chest again demonstrates COPD and tiny left lung calcified granuloma. Remaining heart and lungs unremarkable. Bony thorax intact again with osteopenia and degenerative changes. No new/acute findings.
== END 2022-10-05 08:48 | disposition left against medical advice (07) ==
LOC: ED 23:57
DX: J44.1 Chronic obstructive pulmonary disease with (acute) exacerbation (principal); D53.1 Other megaloblastic anemias, not elsewhere classified; Z99.81 Dependence on supplemental oxygen; R60.0 Localized edema; I10 Essential (primary) hypertension; Z79.899 Other long term (current) drug therapy; Z72.0 Tobacco use; Z20.828 Contact with and (suspected) exposure to other viral communicable diseases
CPT/HCPCS: 0241U; 36000; 36415; 71045; 80053; 83880; 84484; 85025; 87040; 93005; 93041; 94640; 94760; 96365; 96367; 96374; 99284; J0456; J0696; J2930; A9270-GY

== ENCOUNTER 2022-11-15 12:29 | Emergency (ER) | payer MEDICARE, BC ==
--- NOTE | 2022-11-15 12:38 | ERPHSYRPT ---
- History of Present Illness Time Seen by Provider: 11/15/22 12:38 Source: patient, family Exam Limitations: clinical condition Physician History: This is a 77-year-old white male patient who is oxygen dependent COPD patient who chronically wears 4 L of oxygen via nasal cannula. He arrives to the emergency department brought in by his son. His oxygenation level on 4 L is 98 to 99%. Patient states he still feels short of breath. He has a history of asthma and hypertension. He denies chest pain. Patient continues to smoke 2 packs of cigarettes per day and has chronic bilateral lower extremity edema. His shortness of air worsened this morning. On 08/03/2022 he had a CTA of the chest performed and there was no evidence of any pulmonary embolus. Patient has a known endobronchial mass. Timing/Duration: today Severity of Dyspnea-Max: moderate Severity of Dyspnea-Current: moderate Possible Cause: frequent episodes, chronic episodes, smoke exposure Modifying Factors: Improves With: activity Associated Symptoms: edema (Chronic bilateral feet and ankle edema), ankle swelling (Chronic bilateral), leg swelling (Chronic bilateral lower extremity), No chest pain/discomfort, No calf pain Allergies/Adverse Reactions: No Known Drug Allergies Allergy (Verified 11/15/22 12:32) Home Medications: Fluticasone/Umeclidin/Vilanter [Trelegy Ellipta 200-62.5-25] 2 puff IH DAILY 08/03/22 [History] Hx Tetanus, Diphtheria Vaccination/Date Given: Yes Hx Influenza Vaccination/Date Given: No Hx Pneumococcal Vaccination/Date Given: No Travel Risk - International Travel Have you traveled outside of the country in past 3 weeks: No - Coronavirus Screening Are you exhibiting any of the following symptoms?: Yes Symptoms: Shortness of Breath Close contact with a COVID-19 positive Pt in past 14-21 Days: No - Vaccine Status Have you recieved a Covid-19 vaccination: Yes Vice President Supply Chain: Unknown - Vaccination Dates Date of 2cond Vaccination (if applicable): na Dates if Unknown: na Comment: states had one last year - Review of Systems Constitutional: Weakness Eyes: No Symptoms Ears, Nose, & Throat: No Symptoms Respiratory: Dyspnea Cardiac: No Symptoms Abdominal/Gastrointestinal: No Symptoms Genitourinary Symptoms: No Symptoms Musculoskeletal: No Symptoms Skin: No Symptoms Neurological: No Symptoms Psychological: No Symptoms Endocrine: No Symptoms Hematologic/Lymphatic: No Symptoms Immunological/Allergic: No Symptoms All Other Systems: Reviewed and Negative - Past Medical History Pertinent Past Medical History: Yes Neurological History: No Pertinent History ENT History: No Pertinent History Cardiac History: Hypertension Respiratory History: Asthma, COPD, Emphysema Endocrine Medical History: No Pertinent History Musculoskeletal History: No Pertinent History GI Medical History: No Pertinent History History: No Pertinent History Psycho-Social History: No Pertinent History Male Reproductive Disorders: No Pertinent History - Past Surgical History Past Surgical History: No Neuro Surgical History: No Pertinent History Cardiac: No Pertinent History Respiratory: No Pertinent History Gastrointestinal: No Pertinent History Genitourinary: No Pertinent History Musculoskeletal: No Pertinent History Male Surgical History: No Pertinent History - Social History Smoking Status: Current every day smoker How long have you smoked: 50 years Exposure to second hand smoke: Yes Drug Use: none Patient Lives Alone: No - Nursing Vital Signs Nursing Vital Signs: Initial Vital Signs Pulse Rate 108 H 11/15/22 12:33 Respiratory Rate 25 H 11/15/22 12:33 Blood Pressure 151/85 11/15/22 12:33 O2 Sat by Pulse Oximetry 96 11/15/22 12:33 Pain Scale Pain Intensity 0 - Physical Exam General Appearance: mild distress, alert, anxiety, thin Eye Exam: PERRL/EOMI, eyes nml inspection Ears, Nose, Throat Exam: hearing grossly normal, normal ENT inspection, normal pharynx Neck Exam: normal inspection, non-tender, supple, full range of motion Respiratory Exam: normal breath sounds, lungs clear, airway intact, No chest tenderness, No respiratory distress Cardiovascular/Chest Exam: tachycardia Abdominal/Gastrointestinal Exam: soft, normal bowel sounds, No tenderness Rectal Exam: not done Extremity Exam: non-tender, normal range of motion, normal inspection Neurologic Exam: alert, oriented x 3, cooperative, vp biology II-XII nml as tested, normal mood/affect, nml cerebellar function, sensation nml Skin Exam: normal color, warm, dry Lymphatic Exam: No adenopathy SpO2 Interpretation: normal - Course Nursing assessment & vital signs reviewed: Yes EKG Interpreted by Me: RATE (97), Sinus Rhythm, LAFB, Right Bundle Branch Block, Other (Borderline prolonged [place] interval. Compared to twelve-lead EKG on 08/03/2022 there is no significant change.) Ordered Tests: Active Orders 24 hr Category Date Time Status Pet Handler STAT Care 11/15/22 12:46 Active EKG-ER Only STAT Care 11/15/22 12:45 Active IV Insertion STAT Care 11/15/22 12:45 Active Pulse Oximetry (ED) STAT Care 11/15/22 12:45 Active CHEST 1 VIEW (PORTABLE) Stat Exams 11/15/22 12:46 Completed BLOOD CULTURE Stat Lab 11/15/22 14:06 Received CBC W DIFF Stat Lab 11/15/22 12:35 Completed CMP Stat Lab 11/15/22 12:35 Completed NT PRO BNP Stat Lab 11/15/22 12:35 Completed TROPONIN Q4H Lab 11/15/22 12:35 Completed TROPONIN Q4H Lab 11/15/22 16:38 Completed TROPONIN Q4H Lab 11/15/22 21:00 Ordered Respiratory Therapy Assessment DAILY RT 11/15/22 12:55 Completed Medication Summary Discontinued Medications Generic Name Dose Route Start Last Admin Trade Name Freq PRN Reason Stop Dose Admin Albuterol Sulfate 2.5 mg 11/15/22 12:45 11/15/22 13:00 Albuterol Sulfate 2.5 Mg/3 Ml Neb IH 11/15/22 12:46 2.5 mg STAT ONE Administration Albuterol Sulfate Confirm 11/15/22 12:52 Albuterol Sulfate 2.5 Mg/3 Ml Neb Administered 11/15/22 12:53 Dose 2.5 mg IH .STK-MED ONE Methylprednisolone Sodium 0 mg 11/15/22 12:45 11/15/22 12:51 Succinate 125 mg/ Sterile IV 11/15/22 12:46 125 mg Water 2 ml STAT ONE Administration Lorazepam 0.5 mg 11/15/22 13:22 11/15/22 13:29 Lorazepam 2 Mg/1 Ml 2 Mg Vial IV 11/15/22 13:23 0.5 mg STAT ONE Administration Lorazepam Confirm 11/15/22 13:26 Lorazepam 2 Mg/1 Ml 2 Mg Vial Administered 11/15/22 13:27 Dose 2 mg .ROUTE .STK-MED ONE Methylprednisolone Sodium Succinate Confirm 11/15/22 12:51 Methylprednis Sod Succ 125 Mg/2 Ml Vial Administered 11/15/22 12:52 Dose 125 mg .ROUTE .STK-MED ONE Sterile Water Confirm 11/15/22 12:51 Water For Injection,Sterile 10 Ml Vial Administered 11/15/22 12:52 Dose 10 ml IJ .STK-MED ONE Lab/Rad Data: Laboratory Result Diagrams 11/15/22 12:35 11/15/22 12:35 Laboratory Results 11/15/22 11/15/22 11/15/22 Range/Units 16:38 14:07 12:35 WBC (4.0-10.5) x10^3/uL RBC (4.1-5.6) x10^6/uL Hgb (12.5-18.0) g/dL Hct (42-50) % MCV (78-100) fL MCH (26-32) pg MCHC (32-36) g/dL RDW (11.5-14.0) % Plt Count (150-450) x10^3/uL MPV (7.5-11.0) fL Gran % (36.0-66.0) % Immature Gran % (Auto) (0.00-0.4) % Nucleat RBC Rel Count (0.00-0.1) % Eos # (Auto) (0-0.5) x10^3/uL Immature Gran # (Auto) (0.00-0.03) x10^3u/L Absolute Lymphs (auto) (1.0-4.6) x10^3/uL Absolute Monos (auto) (0.0-1.3) x10^3/uL Absolute Nucleated RBC (0.00-0.01) x10^3u/L Lymphocytes % (24.0-44.0) % Monocytes % (0.0-12.0) % Eosinophils % (0.00-5.0) % Basophils % (0.0-0.4) % Absolute Granulocytes (1.4-6.9) x10^3/uL Basophils # (0-0.4) x10^3/uL Sodium (137-145) mmol/L Potassium (3.5-5.1) mmol/L Chloride (98-107) mmol/L Carbon Dioxide (22-30) mmol/L Anion Gap (5-15) MEQ/L BUN (9-20) mg/dL Creatinine (0.66-1.25) mg/dL Estimated GFR ML/MIN Glucose (74-106) mg/dL Calcium (8.4-10.2) mg/dL Total Bilirubin (0.2-1.3) mg/dL AST (17-59) U/L ALT (0-50) U/L Alkaline Phosphatase (38-126) U/L Troponin I < 0.012 < 0.012 (0.000-0.034) ng/mL NT-Pro-B Natriuret Pep (0-1800) pg/mL Serum Total Protein (6.3-8.2) g/dL Albumin (3.5-5.0) g/dL Influenza Type A Ag NEGATIVE (NEGATIVE) Influenza Type B Ag NEGATIVE (NEGATIVE) RSV (PCR) NEGATIVE (Negative) SARS-CoV-2 (PCR) NEGATIVE (NEGATIVE) 11/15/22 11/15/22 Range/Units 12:35 12:35 WBC 8.7 (4.0-10.5) x10^3/uL RBC 3.45 L (4.1-5.6) x10^6/uL Hgb 11.7 L (12.5-18.0) g/dL Hct 37.1 L (42-50) % MCV 107.5 H (78-100) fL MCH 33.9 H (26-32) pg MCHC 31.5 L (32-36) g/dL RDW 15.4 H (11.5-14.0) % Plt Count 284 (150-450) x10^3/uL MPV 9.3 (7.5-11.0) fL Gran % 64.9 (36.0-66.0) % Immature Gran % (Auto) 0.9 H (0.00-0.4) % Nucleat RBC Rel Count 0.0 (0.00-0.1) % Eos # (Auto) 0.03 (0-0.5) x10^3/uL Immature Gran # (Auto) 0.08 H (0.00-0.03) x10^3u/L Absolute Lymphs (auto) 2.28 (1.0-4.6) x10^3/uL Absolute Monos (auto) 0.58 (0.0-1.3) x10^3/uL Absolute Nucleated RBC 0.00 (0.00-0.01) x10^3u/L Lymphocytes % 26.3 (24.0-44.0) % Monocytes % 6.7 (0.0-12.0) % Eosinophils % 0.3 (0.00-5.0) % Basophils % 0.9 (0.0-0.4) % Absolute Granulocytes 5.61 (1.4-6.9) x10^3/uL Basophils # 0.08 (0-0.4) x10^3/uL Sodium 136 L (137-145) mmol/L Potassium 4.2 (3.5-5.1) mmol/L Chloride 97 L (98-107) mmol/L Carbon Dioxide 32 H (22-30) mmol/L Anion Gap 10.8 (5-15) MEQ/L BUN 10 (9-20) mg/dL Creatinine 0.69 (0.66-1.25) mg/dL Estimated GFR > 60.0 ML/MIN Glucose 122 H (74-106) mg/dL Calcium 8.5 (8.4-10.2) mg/dL Total Bilirubin 0.30 (0.2-1.3) mg/dL AST 54 (17-59) U/L ALT 24 (0-50) U/L Alkaline Phosphatase 136 H (38-126) U/L Troponin I (0.000-0.034) ng/mL NT-Pro-B Natriuret Pep 177 (0-1800) pg/mL Serum Total Protein 7.1 (6.3-8.2) g/dL Albumin 3.9 (3.5-5.0) g/dL Influenza Type A Ag (NEGATIVE) Influenza Type B Ag (NEGATIVE) RSV (PCR) (Negative) SARS-CoV-2 (PCR) (NEGATIVE) - Progress Progress: improved, re-examined Air Movement: good Progress Note: 11/15/22 17:50 Chest x-ray has chronic changes. No evidence of any acute cardiopulmonary processes. Medical decision making: This patient's emergency room stay is moderate complexity. I reviewed old records and compared old labs to do lab results. I also reviewed to the old radiographic studies and compare them to today's. We monitored him during his stay in the emergency department. Based on the results of his lab work and radiographic studies and results of his 12 EKG, the patient is being discharged to home with a diagnosis of COPD exacerbation anxiety. I spoke with the patient's son and we formulated a plan for him for outpatient care and for him to follow-up with his primary care provider. Counseled pt/family regarding: lab results, diagnosis, need for follow-up, rad results - Departure Departure Disposition: Home Clinical Impression: COPD exacerbation, Anxiety about health Condition: Stable Critical Care Time: No Referrals: MARCELO MONTAÑO [Primary Care Provider] - Follow up/PCP as directed Instructions: Chronic Obstructive Pulmonary Disease Additional Instructions: Stop smoking. Take your medication as prescribed. Follow-up with your primary care physician for further evaluation management including referral to a ct tech if indicated. Prescriptions: Lorazepam [Ativan] 0.5 mg PO BID PRN PRN #4 tablet MDD 2 PRN Reason: Anxiety Prednisone 10 mg [Deltasone 10 mg] 10 mg PO TID #12 tablet
[2022-11-15] MEDS ORDERED: PROVENTIL 2.5 MG/3 ML NEB IH ONE ×2 (12:45→12:52)
[2022-11-15] MEDS ORDERED: solu-MEDROL 125 MG, Sterile H2O 10 ml 2 ML IV ONE ×2 (12:45)
[2022-11-15] MEDS ORDERED: solu-MEDROL ONE (12:51)
[2022-11-15] MEDS ORDERED: Sterile H2O 10 ml IJ ONE (12:51)
--- NOTE | 2022-11-15 13:06 | XRAY ---
Indication: Short of breath. COPD. Comparison: October 05, 2022 Portable chest unchanged again demonstrating COPD, minimal bibasilar subsegmental atelectasis/scarring, and a few tiny calcified granulomas. Heart not enlarged. Bony thorax intact again with osteopenia and degenerative changes. No new/acute findings.
[2022-11-15] MEDS ORDERED: Ativan 2 MG/1 ML VIAL IV ONE (13:22)
[2022-11-15] MEDS ORDERED: Ativan 2 MG/1 ML VIAL ONE (13:26)
[2022-11-15 14:02] LABS: Absolute Neutrophil Ct (ANC) 5.61 x10^3/uL (1.4-6.9); Basophil (Absolute #) 0.08 x10^3/uL (0-0.4); Eosinophil % 0.3 % (0.00-5.0); Eosinophil (Absolute #) 0.03 x10^3/uL (0-0.5); Hematocrit 37.1 % (42-50); Hemoglobin 11.7 g/dL (12.5-18.0); Lymphocyte (Absolute #) 2.28 x10^3/uL (1.0-4.6); Lymphocytes % 26.3 % (24.0-44.0); Mean Cell Volume 107.5 fL (78-100); Mean Corpuscular Hemoglobin 33.9 pg (26-32); Mean Corpuscular Hgb Concent. 31.5 g/dL (32-36); Mean Platelet Volume 9.3 fL (7.5-11.0); Monocyte (Absolute #) 0.58 x10^3/uL (0.0-1.3); Monocytes % 6.7 % (0.0-12.0); Neutrophil % 64.9 % (36.0-66.0); Platelet Count 284 x10^3/uL (150-450); Red Blood Count 3.45 x10^6/uL (4.1-5.6); Red Cell Distribution Width 15.4 % (11.5-14.0); White Blood Count 8.7 x10^3/uL (4.0-10.5)
[2022-11-15 14:52] LABS: INFLUENZA A NEGATIVE (NEGATIVE); INFLUENZA B NEGATIVE (NEGATIVE); RESPIRATORY SYNCTIAL VIRUS NEGATIVE (Negative); SARS-CoV-2 Xpert Express NEGATIVE (NEGATIVE)
[2022-11-15 15:25] LABS: ALBUMIN 3.9 g/dL (3.5-5.0); ALKALINE PHOSPHATASE 136 U/L (38-126); ANION GAP 10.8 MEQ/L (5-15); BLOOD UREA NITROGEN 10 mg/dL (9-20); CHLORIDE 97 mmol/L (98-107); Calcium 8.5 mg/dL (8.4-10.2); Carbon Dioxide 32 mmol/L (22-30); Creatinine 1 0.69 mg/dL (0.66-1.25); EST GLOMERULAR FILTRATION RATE > 60.0 ML/MIN; Glucose 122 mg/dL (74-106); NT PRO BNP 177 pg/mL (0-1800); Potassium 4.2 mmol/L (3.5-5.1); SGOT/AST 54 U/L (17-59); SGPT/ALT 24 U/L (0-50); SODIUM 136 mmol/L (137-145); Total Protein 7.1 g/dL (6.3-8.2)
[2022-11-15 18:01] VITALS: BP 137/62; PULSE 84; O2SAT 99
== END 2022-11-15 18:08 | disposition home or self-care (01) ==
LOC: ED 12:29
DX: J44.1 Chronic obstructive pulmonary disease with (acute) exacerbation (principal); F45.9 Somatoform disorder, unspecified; R60.0 Localized edema; I10 Essential (primary) hypertension; Z79.899 Other long term (current) drug therapy; Z79.52 Long term (current) use of systemic steroids; Z72.0 Tobacco use; Z99.81 Dependence on supplemental oxygen
CPT/HCPCS: 0241U; 36000; 36415; 71045; 80053; 83880; 84484; 85025; 87040; 93005; 93041; 94640; 94760; 96374; 96375; 99284; J2060; J2930; J7609; A9270-GY

== ENCOUNTER 2022-12-17 01:58 | Emergency (ER) | payer MEDICARE, BC ==
[2022-12-17] MEDS ORDERED: DUONEB 0.5-3 MG/3 ml Neb IH ONE ×2 (02:02→02:04)
[2022-12-17] MEDS ORDERED: solu-MEDROL 125 MG, Sterile H2O 10 ml 2 ML IV ONE ×2 (02:02)
[2022-12-17] MEDS ORDERED: Sterile H2O 10 ml IJ ONE (02:20)
[2022-12-17] MEDS ORDERED: solu-MEDROL ONE (02:20)
[2022-12-17 02:29] LABS: BASOPHIL % 0.8 % (0.0-0.4); Basophil (Absolute #) 0.09 x10^3/uL (0-0.4); Eosinophil (Absolute #) 0.12 x10^3/uL (0-0.5); Hematocrit 34.7 % (42-50); Hemoglobin 10.8 g/dL (12.5-18.0); IMMATURE GRAN # 0.06 x10^3u/L (0.00-0.03); IMMATURE GRAN % 0.5 % (0.00-0.4); Lymphocyte (Absolute #) 3.24 x10^3/uL (1.0-4.6); Lymphocytes % 27.9 % (24.0-44.0); Mean Cell Volume 108.8 fL (78-100); Mean Corpuscular Hemoglobin 33.9 pg (26-32); Mean Corpuscular Hgb Concent. 31.1 g/dL (32-36); Mean Platelet Volume 8.7 fL (7.5-11.0); Monocytes % 8.6 % (0.0-12.0); Neutrophil % 61.2 % (36.0-66.0); Platelet Count 338 x10^3/uL (150-450); Red Blood Count 3.19 x10^6/uL (4.1-5.6); Red Cell Distribution Width 13.1 % (11.5-14.0); White Blood Count 11.6 x10^3/uL (4.0-10.5)
[2022-12-17 02:39] LABS: ALKALINE PHOSPHATASE 99 U/L (38-126); ANION GAP 8.8 MEQ/L (5-15); BLOOD UREA NITROGEN 12 mg/dL (9-20); CHLORIDE 97 mmol/L (98-107); Calcium 7.7 mg/dL (8.4-10.2); Carbon Dioxide 29 mmol/L (22-30); Creatinine 1 0.58 mg/dL (0.66-1.25); EST GLOMERULAR FILTRATION RATE > 60.0 ML/MIN; Glucose 156 mg/dL (74-106); INR 0.92 (0.8-3.0); LIPASE 505 U/L (23-300); PROTIME 9.8 SECONDS (9.4-12.5); SGOT/AST 29 U/L (17-59); SGPT/ALT 20 U/L (0-50); SODIUM 131 mmol/L (137-145); Total Protein 5.9 g/dL (6.3-8.2)
[2022-12-17 02:46] LABS: A-aADO2 217; ABG HEMOGLOBIN 10.2; ABG POTASSIUM 3.9 (3.5-5.1); ABG SITE RIGHT RADIAL; ALLEN TEST OK? YES; ARTERIAL BLD GAS TIDAL VOLUME 500 cc; ARTERIAL BLOOD GAS BASE EXCESS -0.1 (-2.0-2.0); ARTERIAL BLOOD GAS FIO2 60 %; ARTERIAL BLOOD GAS PCO2 35 mmHg (35-45); ARTERIAL BLOOD GAS PO2 167 mmHg (75-100); ARTERIAL BLOOD GAS pH 7.44 (7.35-7.45); CARBOXYHEMOGLOBIN 3.7 % THgb (0.0-6.9); HCO3- 23.8 (22-28); HGB O2 SAT 94.8 g/dF (94-100); Methhemoglobin 0.6 % (1.4-1.5); paO2 pAO1 0.43
--- NOTE | 2022-12-17 02:51 | ERPHSYRPT ---
- History of Present Illness Time Seen by Provider: 12/17/22 02:00 Source: patient, family Exam Limitations: no limitations Patient Subjective Stated Complaint: per pts son, pt has been increasingly short of breath tonight. states he moved into assisted living today and thinks he forgot to take breathing treatments throughout the day Triage Nursing Assessment: pt alert and oriented, pt answers questions approp. answers in one word replies on arrival to er. pt short of breath, accessory muscle use noted. diminished breath sounds bilat Physician History: Patient has a history of COPD and requires 4 L of oxygen at all times he comes in with worsening shortness of breath that exacerbated 1 hour prior to emergency department and there was concern that he was not taking his medications due to moving into a new home today Timing/Duration: today Activities at Onset: none Severity of Dyspnea-Max: severe Severity of Dyspnea-Current: severe Possible Cause: occasional episodes Modifying Factors: Improves With: nothing Associated Symptoms: tightness, No cough, No chest pain/discomfort, No edema, No fever, No insomnia, No loss of appetite, No wheezing, No ankle swelling, No chills, No hemoptysis, No calf pain, No dizziness, No heaviness, No heart racing, No lightheadedness, No leg swelling, No muscle spasms hands, No painful breathing, No productive cough Allergies/Adverse Reactions: No Known Drug Allergies Allergy (Verified 12/17/22 02:32) Home Medications: Acetaminophen 500 mg [Tylenol Extra Strength 500 mg] 1,000 mg PO Q8H PRN PRN 12/17/22 [History] Albuterol 2.5 mg/3 ml Neb [Proventil 2.5 mg/3 ml Neb] 2.5 mg IH Q6H PRN PRN 12/17/22 [History] Albuterol 8 gm Mdi Hfa [Ventolin Hfa MDI] 2 inh IH Q4H PRN PRN 12/17/22 [History] Aspirin EC 81 mg [Ecotrin 81 mg] 81 mg PO DAILY 12/17/22 [History] Budesonide 0.5 mg/2 ml [Pulmicort 0.5 mg/2 ml Respules] 0.5 mg IH BID 12/17/22 [History] Famotidine 20 mg [Pepcid 20 MG] 20 mg PO BID 12/17/22 [History] Fluticasone/Umeclidin/Vilanter [Trelegy Ellipta 200-62.5-25] 1 each IH DAILY 12/17/22 [History] Furosemide [Lasix] 20 mg PO UD 12/17/22 [History] Guaifenesin 600 mg ER [Mucinex 600MG ER Tabs] 600 mg PO BID 12/17/22 [History] Loperamide HCl 2 mg [Imodium 2 mg] 2 mg PO Q4H PRN PRN 12/17/22 [History] Hx Tetanus, Diphtheria Vaccination/Date Given: Yes Hx Influenza Vaccination/Date Given: Yes Hx Pneumococcal Vaccination/Date Given: Yes Immunizations Up to Date: Yes Travel Risk - International Travel Have you traveled outside of the country in past 3 weeks: No - Coronavirus Screening Are you exhibiting any of the following symptoms?: Yes Symptoms: Shortness of Breath Close contact with a COVID-19 positive Pt in past 14-21 Days: No - Vaccine Status Have you recieved a Covid-19 vaccination: Yes Administrative Receptionist: [email or web address] - Vaccination Dates Date of 2cond Vaccination (if applicable): na Dates if Unknown: na Comment: states had one last year - Review of Systems Constitutional: No Fever, No Chills Eyes: No Eye Pain, No Eye Redness, No Vision Changes Ears, Nose, & Throat: No Ear Pain, No Nose Congestion, No Nose Discharge, No Hoarse, No Painful Swallowing Respiratory: Dyspnea, No Cough Cardiac: No Chest Pain, No Edema, No Syncope Abdominal/Gastrointestinal: No Abdominal Pain, No Nausea, No Vomiting, No Diarrhea, No Hematochezia Genitourinary Symptoms: No Dysuria, No Flank Pain Musculoskeletal: No Back Pain, No Neck Pain Skin: No Rash Neurological: No Dizziness, No Focal Weakness, No Sensory Changes Psychological: No Suicidal Ideations, No Homicidal Ideations Endocrine: No Symptoms Hematologic/Lymphatic: No Easy Bleeding, No Easy Bruising All Other Systems: Reviewed and Negative - Past Medical History Pertinent Past Medical History: Yes Neurological History: No Pertinent History ENT History: No Pertinent History Cardiac History: Hypertension Respiratory History: Asthma, COPD, Emphysema Endocrine Medical History: No Pertinent History Musculoskeletal History: No Pertinent History GI Medical History: No Pertinent History History: No Pertinent History Psycho-Social History: No Pertinent History Male Reproductive Disorders: No Pertinent History - Past Surgical History Past Surgical History: No Neuro Surgical History: No Pertinent History Cardiac: No Pertinent History Respiratory: No Pertinent History Gastrointestinal: No Pertinent History Genitourinary: No Pertinent History Musculoskeletal: No Pertinent History Male Surgical History: No Pertinent History - Social History Smoking Status: Current every day smoker How long have you smoked: 50+ years Exposure to second hand smoke: Yes Drug Use: none Patient Lives Alone: Yes (assisted living at [facility]) - Nursing Vital Signs Nursing Vital Signs: Initial Vital Signs Temperature 98.6 F 12/17/22 01:59 Pulse Rate 84 12/17/22 01:59 Respiratory Rate 24 12/17/22 01:59 Blood Pressure 136/75 12/17/22 01:59 O2 Sat by Pulse Oximetry 99 12/17/22 01:59 Pain Scale Pain Intensity 0 - Physical Exam General Appearance: moderate distress, alert Eye Exam: PERRL/EOMI, No scleral icterus Ears, Nose, Throat Exam: No normal ENT inspection, No normal pharynx, No sinus pain/drainage, No nasal congestion, No pharyngeal erythema Neck Exam: normal inspection, supple, No full range of motion, No meningismus, No JVD, No lymphadenopathy (R), No lymphadenopathy (L) Respiratory Exam: respiratory distress, diminished breath sounds, accessory muscle use, prolonged expirations, No crackles/rales, No rhonchi, No wheezing Cardiovascular/Chest Exam: normal heart sounds, regular rate/rhythm Abdominal/Gastrointestinal Exam: soft, No tenderness, No distention, No mass Extremity Exam: non-tender, normal range of motion, normal inspection, no calf tenderness, no pedal edema Neurologic Exam: alert, oriented x 3, cooperative, yarn winder II-XII nml as tested, normal mood/affect, sensation nml, No motor deficits Skin Exam: normal color, warm, No dry SpO2 Interpretation: hypoxic SpO2: 98 - Course Nursing assessment & vital signs reviewed: Yes EKG Interpreted by Me: RATE (92), Sinus Rhythm, NORMAL AXIS, Right Bundle Branch Block, NORMAL ST-T, Other (positive PVCs, multiform; No significant change in comparison to EKG from 11/15/2022, overall impression: Abnormal EKG) - Radiology Exams Chest X-ray Interpretation: Interpreted by me, No Pneumonia, No Pneumothorax, Nml Heart Size, No Infiltrates, Nml Mediastinum - CT Exams Chest CT Interpretation: Tele-radiologist Report (No evidence of pulmonary embolism. Mild dependent mucus versus aspirated material within the posterior trachea and bilateral lower lobe bronchi. Centrilobular emphysema with chronic left apical scarring and bibasilar atelectasis. Mild posterior pleural effusions. Atherosclerotic vascular disease) Ordered Tests: Active Orders 24 hr Category Date Time Status CO2 Monitoring STAT Care 12/17/22 02:02 Completed Branch Operation Evaluation Manager STAT Care 12/17/22 02:03 Active EKG-ER Only STAT Care 12/17/22 02:02 Active IV Insertion STAT Care 12/17/22 02:02 Active NPO (ED) STAT Care 12/17/22 02:02 Active Pulse Oximetry (ED) STAT Care 12/17/22 02:02 Active CHEST 1 VIEW (PORTABLE) Stat Exams 12/17/22 02:11 Taken CHEST WITH CONTRAST [CT] Stat Exams 12/17/22 02:50 Taken ARTERIAL BLOOD GASES Stat Lab 12/17/22 02:39 Completed BLOOD CULTURE Stat Lab 12/17/22 02:41 Received CBC W DIFF Stat Lab 12/17/22 02:22 Completed CMP Stat Lab 12/17/22 02:22 Completed LIPASE Stat Lab 12/17/22 02:22 Completed Lactic Acid Stat Lab 12/17/22 02:39 Completed MAGNESIUM Stat Lab 12/17/22 02:22 Completed NT PRO BNPII Stat Lab 12/17/22 02:22 Completed PROTIME WITH INR Stat Lab 12/17/22 02:22 Completed TROPONIN Q4H Lab 12/17/22 02:22 Completed TROPONIN Q4H Lab 12/17/22 05:44 Completed TROPONIN Q4H Lab 12/17/22 10:15 Ordered UA W/RFX UR CULTURE Stat Lab 12/17/22 03:51 Completed BiPap/CPAP STAT RT 12/17/22 02:02 Completed Respiratory Therapy Assessment DAILY RT 12/17/22 03:07 Completed Medication Summary Discontinued Medications Generic Name Dose Route Start Last Admin Trade Name Freq PRN Reason Stop Dose Admin Albuterol/Ipratropium 3 ml 12/17/22 02:02 12/17/22 02:35 Ipratropium/Albuterol Sulfate 3 Ml Ampul.Neb IH 12/17/22 02:03 3 ml STAT ONE Administration Albuterol/Ipratropium Confirm 12/17/22 02:04 Ipratropium/Albuterol Sulfate 3 Ml Ampul.Neb Administered 12/17/22 02:05 Dose 3 ml IH .STK-MED ONE Aspirin 324 mg 12/17/22 06:20 12/17/22 06:27 Aspirin 81 Mg Tab.Chew PO 12/17/22 06:21 324 mg STAT ONE Administration Methylprednisolone Sodium 0 mg 12/17/22 02:02 12/17/22 02:23 Succinate 125 mg/ Sterile IV 12/17/22 02:03 125 mg Water 2 ml STAT ONE Administration Sodium Chloride 1,000 mls @ 999 mls/hr 12/17/22 04:07 12/17/22 06:44 Sodium Chloride 0.9% 1000 Ml IV 12/17/22 05:07 Infused .Q1H1M STA Infusion Sodium Chloride Confirm 12/17/22 04:19 Sodium Chloride 0.9% 1000 Ml Administered 12/17/22 04:20 Dose 1,000 mls @ ud .ROUTE .STK-MED ONE Methylprednisolone Sodium Succinate Confirm 12/17/22 02:20 Methylprednis Sod Succ 125 Mg/2 Ml Vial Administered 12/17/22 02:21 Dose 125 mg .ROUTE .STK-MED ONE Sterile Water Confirm 12/17/22 02:20 Water For Injection,Sterile 10 Ml Vial Administered 12/17/22 02:21 Dose 10 ml IJ .STK-MED ONE Lab/Rad Data: Laboratory Result Diagrams 12/17/22 02:22 12/17/22 02:22 Laboratory Results 12/17/22 12/17/22 12/17/22 Range/Units 05:44 03:51 02:39 WBC (4.0-10.5) x10^3/uL RBC (4.1-5.6) x10^6/uL Hgb (12.5-18.0) g/dL Hct (42-50) % MCV (78-100) fL MCH (26-32) pg MCHC (32-36) g/dL RDW (11.5-14.0) % Plt Count (150-450) x10^3/uL MPV (7.5-11.0) fL Gran % (36.0-66.0) % Immature Gran % (Auto) (0.00-0.4) % Nucleat RBC Rel Count (0.00-0.1) % Eos # (Auto) (0-0.5) x10^3/uL Immature Gran # (Auto) (0.00-0.03) x10^3u/L Absolute Lymphs (auto) (1.0-4.6) x10^3/uL Absolute Monos (auto) (0.0-1.3) x10^3/uL Absolute Nucleated RBC (0.00-0.01) x10^3u/L Lymphocytes % (24.0-44.0) % Monocytes % (0.0-12.0) % Eosinophils % (0.00-5.0) % Basophils % (0.0-0.4) % Absolute Granulocytes (1.4-6.9) x10^3/uL Basophils # (0-0.4) x10^3/uL PT (9.4-12.5) SECONDS INR (0.8-3.0) Puncture Site RIGHT RADIAL pCO2 35 (35-45) mmHg pO2 167 H* (75-100) mmHg Base Excess -0.1 (-2.0-2.0) O2 Saturation 94.8 (94-100) g/dF ABG pH 7.44 (7.35-7.45) ABG HCO3 23.8 (22-28) ABG O2 Sat (Measured) 99.0 (95-100) % Ronnie Test YES A-a Gradient 217 a/A Ratio 0.43 Hemoglobin 10.2 Carboxyhemoglobin 3.7 (0.0-6.9) % THgb Methemoglobin 0.6 L (1.4-1.5) % Temperature 37.0 C POC O2 Flow Rate 60 % Tidal Volume 500 cc PEEP 8.0 cmH2O Sodium (137-145) mmol/L Potassium 3.9 (3.5-5.1) mmol/L Chloride (98-107) mmol/L Carbon Dioxide (22-30) mmol/L Anion Gap (5-15) MEQ/L BUN (9-20) mg/dL Creatinine (0.66-1.25) mg/dL Estimated GFR ML/MIN Glucose (74-106) mg/dL Lactic Acid 2.0 (0.4-2.0) Calcium (8.4-10.2) mg/dL Magnesium (1.6-2.3) mg/dL Total Bilirubin (0.2-1.3) mg/dL AST (17-59) U/L ALT (0-50) U/L Alkaline Phosphatase (38-126) U/L Troponin I 0.046 H* (0.000-0.034) ng/mL NT-Pro-B Natriuret Pep (<300) pg/mL Serum Total Protein (6.3-8.2) g/dL Albumin (3.5-5.0) g/dL Lipase (23-300) U/L Urine Color Yellow (Yellow) Urine Appearance Clear (Clear) Urine pH 6.5 (4.6-8.0) Ur Specific [place] >=1.030 A (1.005-1.030) Urine Protein Negative (Negative) Urine Glucose (UA) Negative (Negative) mg/dL Urine Ketones Negative (Negative) Urine Blood Negative (Negative) Urine Nitrite Negative (Negative) Urine Bilirubin Negative (Negative) Urine Urobilinogen 0.2 (0.2) mg/dL Ur Leukocyte Esterase Negative (Negative) U Hyaline Cast (Auto) NONE SEEN (0-2) /LPF Urine Microscopic RBC 0-2 (0-5) /HPF Urine Microscopic WBC 0-2 (0-5) /HPF Ur Epithelial Cells None Seen (None Seen) /HPF Urine Bacteria None Seen (None Seen) /HPF Urine Culture Reflexed NO (NO) Influenza Type A Ag (NEGATIVE) Influenza Type B Ag (NEGATIVE) RSV (PCR) (Negative) SARS-CoV-2 (PCR) (NEGATIVE) 12/17/22 12/17/22 12/17/22 Range/Units 02:22 02:22 02:22 WBC (4.0-10.5) x10^3/uL RBC (4.1-5.6) x10^6/uL Hgb (12.5-18.0) g/dL Hct (42-50) % MCV (78-100) fL MCH (26-32) pg MCHC (32-36) g/dL RDW (11.5-14.0) % Plt Count (150-450) x10^3/uL MPV (7.5-11.0) fL Gran % (36.0-66.0) % Immature Gran % (Auto) (0.00-0.4) % Nucleat RBC Rel Count (0.00-0.1) % Eos # (Auto) (0-0.5) x10^3/uL Immature Gran # (Auto) (0.00-0.03) x10^3u/L Absolute Lymphs (auto) (1.0-4.6) x10^3/uL Absolute Monos (auto) (0.0-1.3) x10^3/uL Absolute Nucleated RBC (0.00-0.01) x10^3u/L Lymphocytes % (24.0-44.0) % Monocytes % (0.0-12.0) % Eosinophils % (0.00-5.0) % Basophils % (0.0-0.4) % Absolute Granulocytes (1.4-6.9) x10^3/uL Basophils # (0-0.4) x10^3/uL PT (9.4-12.5) SECONDS INR (0.8-3.0) Puncture Site pCO2 (35-45) mmHg pO2 (75-100) mmHg Base Excess (-2.0-2.0) O2 Saturation (94-100) g/dF ABG pH (7.35-7.45) ABG HCO3 (22-28) ABG O2 Sat (Measured) (95-100) % Ronnie Test A-a Gradient a/A Ratio Hemoglobin Carboxyhemoglobin (0.0-6.9) % THgb Methemoglobin (1.4-1.5) % Temperature C POC O2 Flow Rate % Tidal Volume cc PEEP cmH2O Sodium (137-145) mmol/L Potassium (3.5-5.1) mmol/L Chloride (98-107) mmol/L Carbon Dioxide (22-30) mmol/L Anion Gap (5-15) MEQ/L BUN (9-20) mg/dL Creatinine (0.66-1.25) mg/dL Estimated GFR ML/MIN Glucose (74-106) mg/dL Lactic Acid (0.4-2.0) Calcium (8.4-10.2) mg/dL Magnesium (1.6-2.3) mg/dL Total Bilirubin (0.2-1.3) mg/dL AST (17-59) U/L ALT (0-50) U/L Alkaline Phosphatase (38-126) U/L Troponin I < 0.012 (0.000-0.034) ng/mL NT-Pro-B Natriuret Pep 381 (<300) pg/mL Serum Total Protein (6.3-8.2) g/dL Albumin (3.5-5.0) g/dL Lipase (23-300) U/L Urine Color (Yellow) Urine Appearance (Clear) Urine pH (4.6-8.0) Ur Specific [place] (1.005-1.030) Urine Protein (Negative) Urine Glucose (UA) (Negative) mg/dL Urine Ketones (Negative) Urine Blood (Negative) Urine Nitrite (Negative) Urine Bilirubin (Negative) Urine Urobilinogen (0.2) mg/dL Ur Leukocyte Esterase (Negative) U Hyaline Cast (Auto) (0-2) /LPF Urine Microscopic RBC (0-5) /HPF Urine Microscopic WBC (0-5) /HPF Ur Epithelial Cells (None Seen) /HPF Urine Bacteria (None Seen) /HPF Urine Culture Reflexed (NO) Influenza Type A Ag NEGATIVE (NEGATIVE) Influenza Type B Ag NEGATIVE (NEGATIVE) RSV (PCR) NEGATIVE (Negative) SARS-CoV-2 (PCR) NEGATIVE (NEGATIVE) 12/17/22 12/17/22 12/17/22 Range/Units 02:22 02:22 02:22 WBC 11.6 H (4.0-10.5) x10^3/uL RBC 3.19 L (4.1-5.6) x10^6/uL Hgb 10.8 L (12.5-18.0) g/dL Hct 34.7 L (42-50) % MCV 108.8 H (78-100) fL MCH 33.9 H (26-32) pg MCHC 31.1 L (32-36) g/dL RDW 13.1 (11.5-14.0) % Plt Count 338 (150-450) x10^3/uL MPV 8.7 (7.5-11.0) fL Gran % 61.2 (36.0-66.0) % Immature Gran % (Auto) 0.5 H (0.00-0.4) % Nucleat RBC Rel Count 0.0 (0.00-0.1) % Eos # (Auto) 0.12 (0-0.5) x10^3/uL Immature Gran # (Auto) 0.06 H (0.00-0.03) x10^3u/L Absolute Lymphs (auto) 3.24 (1.0-4.6) x10^3/uL Absolute Monos (auto) 1.00 (0.0-1.3) x10^3/uL Absolute Nucleated RBC 0.00 (0.00-0.01) x10^3u/L Lymphocytes % 27.9 (24.0-44.0) % Monocytes % 8.6 (0.0-12.0) % Eosinophils % 1.0 (0.00-5.0) % Basophils % 0.8 (0.0-0.4) % Absolute Granulocytes 7.10 H (1.4-6.9) x10^3/uL Basophils # 0.09 (0-0.4) x10^3/uL PT 9.8 (9.4-12.5) SECONDS INR 0.92 (0.8-3.0) Puncture Site pCO2 (35-45) mmHg pO2 (75-100) mmHg Base Excess (-2.0-2.0) O2 Saturation (94-100) g/dF ABG pH (7.35-7.45) ABG HCO3 (22-28) ABG O2 Sat (Measured) (95-100) % Ronnie Test A-a Gradient a/A Ratio Hemoglobin Carboxyhemoglobin (0.0-6.9) % THgb Methemoglobin (1.4-1.5) % Temperature C POC O2 Flow Rate % Tidal Volume cc PEEP cmH2O Sodium 131 L (137-145) mmol/L Potassium 4.0 (3.5-5.1) mmol/L Chloride 97 L (98-107) mmol/L Carbon Dioxide 29 (22-30) mmol/L Anion Gap 8.8 (5-15) MEQ/L BUN 12 (9-20) mg/dL Creatinine 0.58 L (0.66-1.25) mg/dL Estimated GFR > 60.0 ML/MIN Glucose 156 H (74-106) mg/dL Lactic Acid (0.4-2.0) Calcium 7.7 L (8.4-10.2) mg/dL Magnesium 2.0 (1.6-2.3) mg/dL Total Bilirubin 0.20 (0.2-1.3) mg/dL AST 29 (17-59) U/L ALT 20 (0-50) U/L Alkaline Phosphatase 99 (38-126) U/L Troponin I (0.000-0.034) ng/mL NT-Pro-B Natriuret Pep (<300) pg/mL Serum Total Protein 5.9 L (6.3-8.2) g/dL Albumin 3.0 L (3.5-5.0) g/dL Lipase 505 H (23-300) U/L Urine Color (Yellow) Urine Appearance (Clear) Urine pH (4.6-8.0) Ur Specific [place] (1.005-1.030) Urine Protein (Negative) Urine Glucose (UA) (Negative) mg/dL Urine Ketones (Negative) Urine Blood (Negative) Urine Nitrite (Negative) Urine Bilirubin (Negative) Urine Urobilinogen (0.2) mg/dL Ur Leukocyte Esterase (Negative) U Hyaline Cast (Auto) (0-2) /LPF Urine Microscopic RBC (0-5) /HPF Urine Microscopic WBC (0-5) /HPF Ur Epithelial Cells (None Seen) /HPF Urine Bacteria (None Seen) /HPF Urine Culture Reflexed (NO) Influenza Type A Ag (NEGATIVE) Influenza Type B Ag (NEGATIVE) RSV (PCR) (Negative) SARS-CoV-2 (PCR) (NEGATIVE) - Progress Progress: improved Air Movement: fair Progress Note: 12/17/22 03:44 Patient is in no type of respiratory distress, no accessory muscle use noted, maintaining SPO2 on his baseline home oxygen, sinus rhythm on the cardiac cath lab manager 12/17/22 04:19 Patient is hypotensive on repeat evaluation, so give a liter of IV fluids and recheck status 12/17/22 05:08 Patient is in no type respiratory distress and states that his blood pressures always run low, but we will get a second troponin and determine final disposition after that Blood Culture(s) Obtained: Yes Antibiotics given: No Discussed with : Aziza (At 06:50, patient was accepted by Dr. Medrano) Will see patient in: hospital (observation) Counseled pt/family regarding: lab results, diagnosis, need for follow-up, rad results, smoking cessation Medical Desision Making - Independent Historian Additional History obtained from: Family - Discussion of managment Care discussed with:: hospitalist Reviewed:: Test results, Need for additional workup Agreed on:: Treatment plan, need for follow-up, decision to admit, place in obs Will see patient: in hospital - Diagnostic Testing Radiological Interpretation: Interpreted by me, Reviewed by me, Teleradiologist Report - Risk of complications The pt has a high risk of morbidity or mortality based on: Drug therapy requiring intensive monitoring for toxicity, Decision regarding hospitilization or escalation of hosp level of care, Decision not to resucitate - Departure Departure Disposition: Observation Clinical Impression: Shortness of breath, Megaloblastic anemia, COPD exacerbation, Elevated troponin Condition: Fair Critical Care Time: No Referrals: MRACELO MONTAÑO [Primary Care Provider] - Follow up/PCP as directed Instructions: Chronic Obstructive Pulmonary Disease
[2022-12-17 03:03] LABS: INFLUENZA A NEGATIVE (NEGATIVE); INFLUENZA B NEGATIVE (NEGATIVE); RESPIRATORY SYNCTIAL VIRUS NEGATIVE (Negative); SARS-CoV-2 Xpert Express NEGATIVE (NEGATIVE)
[2022-12-17] MEDS ORDERED: Sodium Chloride 0.9% 1000 ML 1,000 ML IV STA (04:07)
[2022-12-17] MEDS ORDERED: Sodium Chloride 0.9% 1000 ML 1,000 ML ONE (04:19)
[2022-12-17 04:20] LABS: Appearance Clear (Clear); Bacteria None Seen /HPF (None Seen); Bilirubin Negative (Negative); Blood Negative (Negative); Epithelial Cells None Seen /HPF (None Seen); Glucose, Urine Negative (Negative); Hyaline Casts NONE SEEN /LPF (0-2); Ketones Negative (Negative); Leukocyte Esterase Negative (Negative); Nitrite Negative (Negative); Ph 6.5 (4.6-8.0); Protein,Urine Dip Negative (Negative); RBC 0-2 /HPF (0-5); Specific Gravity >=1.030 (1.005-1.030); Urobilinogen 0.2 mg/dL (0.2); WBC 0-2 /HPF (0-5)
[2022-12-17 04:39] LABS: ADD URINE CULTURE? NO (NO)
[2022-12-17] MEDS ORDERED: BABY ASPIRIN 81 MG CHEW PO ONE (06:20)
[2022-12-17 07:44] VITALS: O2SAT 100
--- NOTE | 2022-12-17 08:03 | XRAY ---
Indication: Short of breath. Dyspnea. Hypoxia. Pulmonary embolus. Multiple contiguous axial images obtained through the chest using 80 cc of Isovue-370 contrast and PE protocol. Comparison: August 03, 2022 Good opacification of the pulmonary arteries to include the lobar and segmental branches. No pulmonary embolus. Heart not enlarged again with coronary calcifications. Aorta is again mildly arteriosclerotic without aneurysm/dissection. No pathologic mediastinal/hilar lymphadenopathy. Trachea demonstrates new minimal mucous layering just above the alethea. Again small hiatal hernia. Lungs demonstrates new mild bilateral effusions with bibasilar compressive atelectasis. Remaining lungs again demonstrates emphysema with scattered fibrosis/scarring, and small left lower lobe calcified granuloma. Bony thorax intact again with osteopenia and mild degenerative changes throughout the spine. Limited upper abdomen including adrenal glands unremarkable. Impression: 1. Continued negative pulmonary embolus. 2. New mild bilateral pleural effusions without cardiomegaly. 3. Minimal mucous layering in the distal trachea. Aspiration not completely excluded. 4. Again chronic findings including pulmonary emphysema, scattered fibrosis/scarring, small hiatal hernia, arteriosclerotic disease, chronic bony findings, and old granulomatous disease. Comment: Preliminary interpretation made by [facility]. No critical discrepancy.
--- NOTE | 2022-12-17 08:05 | XRAY ---
Indication: Short of breath. Dyspnea. Comparison: November 15, 2022 Portable chest demonstrates new CT proven small bibasilar effusions/atelectasis. Stable COPD and tiny calcified granuloma. Heart not enlarged. Bony thorax intact again with osteopenia and degenerative changes.
[2022-12-17 09:01] VITALS: BP 97/53; PULSE 62
== END 2022-12-17 09:06 | disposition home or self-care (01) ==
LOC: ED 01:58
DX: J44.1 Chronic obstructive pulmonary disease with (acute) exacerbation (principal); D53.1 Other megaloblastic anemias, not elsewhere classified; R06.02 Shortness of breath; R77.8 Other specified abnormalities of plasma proteins; I10 Essential (primary) hypertension; Z79.899 Other long term (current) drug therapy; Z99.81 Dependence on supplemental oxygen; Z72.0 Tobacco use; Z20.828 Contact with and (suspected) exposure to other viral communicable diseases
CPT/HCPCS: 0241U; 36000; 36415; 36600; 71045; 71260; 80053; 81001; 82375; 82803; 83605; 83690; 83735; 83880; 84484; 85025; 85610; 87040; 93005; 93041; 94002; 94640; 94760; 96374; 99284; J2930; A9270-GY

== ENCOUNTER 2022-12-26 22:58 | Emergency (ER) | payer MEDICARE, BC ==
[2022-12-26 23:02] VITALS: O2SAT 100
--- NOTE | 2022-12-26 23:28 | ERPHSYRPT ---
- History of Present Illness Source: patient, EMS Exam Limitations: other (Poor historian) Patient Subjective Stated Complaint: can't urinate Triage Nursing Assessment: pt arrived via ambulance, alert and oriented. Pt was brought to ER due to unable to urinate for the last couple of hours. Pt states, "It's unordinary for me not to have urinated". Pt also informed me that he hadn't drank very much this evening but just a little water. During triage, pt voided 25cc, clear yellow urine. Abd soft with active bs x4 quad, nontender. Pt denies pain. Physician History: 77 yo wm from assisted living presents per EMS w urinary retention. Pt states over the last 2 hours that his stream has decreased but states that it is better since he arrived at the hospital. Pt denies any dysuria/hematuria/pelvic pain/fever/nausea/vomiting. Timing/Duration: hour(s) (2 hours) Activites at Onset: rest Pain Radiation: none Severity of Pain-Max: none Severity of Pain-Current: none Modifying Factors: Improves With: nothing Associated Symptoms: denies symptoms Prior abdominal problems: none Sexual intercourse history: non-contributory Allergies/Adverse Reactions: No Known Drug Allergies Allergy (Verified 12/26/22 23:14) Home Medications: Acetaminophen 500 mg [Tylenol Extra Strength 500 mg] 1,000 mg PO Q8H PRN PRN 12/17/22 [History] Albuterol 2.5 mg/3 ml Neb [Proventil 2.5 mg/3 ml Neb] 2.5 mg IH Q6H PRN PRN 12/17/22 [History] Albuterol 8 gm Mdi Hfa [Ventolin Hfa MDI] 2 inh IH Q4H PRN PRN 12/17/22 [History] Aspirin EC 81 mg [Ecotrin 81 mg] 81 mg PO DAILY 12/17/22 [History] Budesonide 0.5 mg/2 ml [Pulmicort 0.5 mg/2 ml Respules] 0.5 mg IH BID 12/17/22 [History] Famotidine 20 mg [Pepcid 20 MG] 20 mg PO BID 12/17/22 [History] Fluticasone/Umeclidin/Vilanter [Trelegy Ellipta 200-62.5-25] 1 each IH DAILY 12/17/22 [History] Furosemide [Lasix] 20 mg PO UD 12/17/22 [History] Guaifenesin 600 mg ER [Mucinex 600MG ER Tabs] 600 mg PO BID 12/17/22 [History] Loperamide HCl 2 mg [Imodium 2 mg] 2 mg PO Q4H PRN PRN 12/17/22 [History] Hx Tetanus, Diphtheria Vaccination/Date Given: Yes Hx Influenza Vaccination/Date Given: Yes Hx Pneumococcal Vaccination/Date Given: Yes Immunizations Up to Date: Yes Travel Risk - International Travel Have you traveled outside of the country in past 3 weeks: No - Coronavirus Screening Are you exhibiting any of the following symptoms?: No Close contact with a COVID-19 positive Pt in past 14-21 Days: No - Vaccine Status Have you recieved a Covid-19 vaccination: Yes Director Of Officiating: Unknown - Vaccination Dates Dates if Unknown: . - Past Medical History Pertinent Past Medical History: Yes Neurological History: No Pertinent History ENT History: No Pertinent History Cardiac History: Hypertension Respiratory History: Asthma, COPD, Emphysema Endocrine Medical History: No Pertinent History Musculoskeletal History: No Pertinent History GI Medical History: No Pertinent History History: No Pertinent History Psycho-Social History: No Pertinent History Male Reproductive Disorders: No Pertinent History - Past Surgical History Past Surgical History: No Neuro Surgical History: No Pertinent History Cardiac: No Pertinent History Respiratory: No Pertinent History Gastrointestinal: No Pertinent History Genitourinary: No Pertinent History Musculoskeletal: No Pertinent History Male Surgical History: No Pertinent History - Social History Smoking Status: Current every day smoker How long have you smoked: 60 years Exposure to second hand smoke: No Drug Use: none Patient Lives Alone: Yes (assisted living) - Review of Systems Constitutional: No Symptoms Eyes: No Symptoms Ears, Nose, & Throat: No Symptoms Respiratory: No Symptoms Cardiac: No Symptoms Abdominal/Gastrointestinal: No Symptoms Genitourinary Symptoms: No Symptoms, Urinary Retention Musculoskeletal: No Symptoms Skin: No Symptoms Neurological: No Symptoms Psychological: No Symptoms Endocrine: No Symptoms Hematologic/Lymphatic: No Symptoms Immunological/Allergic: No Symptoms - Nursing Vital Signs Nursing Vital Signs: Initial Vital Signs Temperature 98.8 F 12/26/22 23:00 Pulse Rate 77 12/26/22 23:00 Respiratory Rate 24 12/26/22 23:00 Blood Pressure 119/60 12/26/22 23:00 O2 Sat by Pulse Oximetry 100 12/26/22 23:00 Pain Scale Pain Intensity 0 WNL - Physical Exam General Appearance: no apparent distress Eye Exam: PERRL/EOMI, eyes nml inspection Ears, Nose, Throat Exam: normal ENT inspection, TMs normal, pharynx normal, moist mucous membranes Neck Exam: normal inspection, non-tender, supple, full range of motion, No meningismus, No mass, No Brudzinski, No Kernig's Respiratory Exam: normal breath sounds, lungs clear, airway intact, No respiratory distress Cardiovascular Exam: regular rate/rhythm, normal heart sounds, normal peripheral pulses, capillary refill <2 sec, No murmur Gastrointestinal/Abdomen Exam: soft, normal bowel sounds, No tenderness Back Exam: normal inspection, normal range of motion, No CVA tenderness, No vertebral tenderness Extremity Exam: normal inspection, normal range of motion Neurologic Exam: alert, oriented x 3, cooperative, insurance consultant II-XII nml as tested, normal mood/affect, nml cerebellar function, nml station & gait, sensation nml, No motor deficits, No sensory deficit Skin Exam: normal color, warm, dry, No rash Lymphatic Exam: No adenopathy SpO2 Interpretation: normal SpO2: 100 O2 Delivery: Room Air - Course Nursing assessment & vital signs reviewed: Yes Ordered Tests: Active Orders 24 hr Category Date Time Status UA W/RFX UR CULTURE Stat Lab 12/26/22 23:18 Completed Lab/Rad Data: Laboratory Results 12/26/22 Range/Units 23:18 Urine Color Yellow (Yellow) Urine Appearance Clear (Clear) Urine pH 7.0 (4.6-8.0) Ur Specific Stout 1.015 (1.005-1.030) Urine Protein 30 (Negative) Urine Glucose (UA) Negative (Negative) mg/dL Urine Ketones Negative (Negative) Urine Blood Negative (Negative) Urine Nitrite Negative (Negative) Urine Bilirubin Negative (Negative) Urine Urobilinogen 0.2 (0.2) mg/dL Ur Leukocyte Esterase Negative (Negative) U Hyaline Cast (Auto) 3-5 A (0-2) /LPF Urine Microscopic RBC 0-2 (0-5) /HPF Urine Microscopic WBC 0-2 (0-5) /HPF Ur Epithelial Cells None Seen (None Seen) /HPF Urine Bacteria None Seen (None Seen) /HPF Urine Culture Reflexed NO (NO) - Progress Progress Note: 12/26/22 23:44 Nursing note and vital signs reviewed No food or housing insecurities noted Additional history from EMS Pt states that he is now able to urinate wo difficulty. He refuses catheterization to access post void residual and wants to go back to assisted living. 12/27/22 00:29 - Departure Departure Disposition: Home Clinical Impression: Urinary retention Condition: Stable Critical Care Time: No Referrals: MARCELO MONTAÑO [Primary Care Provider] - Follow up/PCP as directed Instructions: Urinary Retention (DC) Additional Instructions: Follow up with your family MD Start Flomax Return to ER as needed Prescriptions: Tamsulosin HCl 0.4 mg [Flomax 0.4 MG] 0.4 mg PO DAILY #30 cap
[2022-12-27 00:01] LABS: ADD URINE CULTURE? NO (NO); Appearance Clear (Clear); Bacteria None Seen /HPF (None Seen); Bilirubin Negative (Negative); Blood Negative (Negative); Epithelial Cells None Seen /HPF (None Seen); Glucose, Urine Negative (Negative); Ketones Negative (Negative); Leukocyte Esterase Negative (Negative); Nitrite Negative (Negative); Protein,Urine Dip 30 (Negative); RBC 0-2 /HPF (0-5); Specific Gravity 1.015 (1.005-1.030); Urobilinogen 0.2 mg/dL (0.2); WBC 0-2 /HPF (0-5)
[2022-12-27 00:19] VITALS: BP 124/66; PULSE 80
== END 2022-12-27 00:27 | disposition home or self-care (01) ==
LOC: ED 22:58
DX: R33.9 Retention of urine, unspecified (principal); I10 Essential (primary) hypertension; J43.9 Emphysema, unspecified; Z72.0 Tobacco use; Z79.899 Other long term (current) drug therapy
CPT/HCPCS: 81001; 99282

== ENCOUNTER 2023-01-03 05:49 | Emergency (ER) | payer MEDICARE, BC ==
--- NOTE | 2023-01-03 06:13 | ERPHSYRPT ---
- History of Present Illness Source: patient, EMS Exam Limitations: no limitations Timing/Duration: today Activities at Onset: none Severity of Dyspnea-Max: moderate Severity of Dyspnea-Current: moderate Possible Cause: frequent episodes, chronic episodes Modifying Factors: Improves With: albuterol nebulizer, coughing Associated Symptoms: cough, wheezing Hx Tetanus, Diphtheria Vaccination/Date Given: Yes Hx Influenza Vaccination/Date Given: Yes Hx Pneumococcal Vaccination/Date Given: Yes <RACHEL PICKERING - Last Filed: 01/03/23 06:03> <SIXTO MEJIAS - Last Filed: 01/03/23 14:20> - History of Present Illness Time Seen by Provider: 01/03/23 06:03 Physician History: Hx is confirmed through independent interview sources of pt and EMS. Pt is 77 yr old with COPD who developed increased shortness of breath tonight adn called ambulance , but is some better now. Chest has some rhonchi Ht is reg without M. Abd is soft and nontender without peritoneal signs or masses. ext without edema. Discussed with pt risks and benfits, and ordered CBC, D dimer, Trop, EKG, BNP, CMP, breathing tx and steroids, Pt is being handed over to Dr. Mejias at change of shift for interpretation of results initial Tx and Disposition after discussion of pending labs and current findings. (RACHEL PICKERING) Allergies/Adverse Reactions: No Known Drug Allergies Allergy (Verified 12/26/22 23:14) Home Medications: Acetaminophen 500 mg [Tylenol Extra Strength 500 mg] 1,000 mg PO Q8H PRN PRN 12/17/22 [History] Albuterol 2.5 mg/3 ml Neb [Proventil 2.5 mg/3 ml Neb] 2.5 mg IH Q6H PRN PRN 12/17/22 [History] Albuterol 8 gm Mdi Hfa [Ventolin Hfa MDI] 2 inh IH Q4H PRN PRN 12/17/22 [History] Aspirin EC 81 mg [Ecotrin 81 mg] 81 mg PO DAILY 12/17/22 [History] Budesonide 0.5 mg/2 ml [Pulmicort 0.5 mg/2 ml Respules] 0.5 mg IH BID 02/18/23 [History] Famotidine 20 mg [Pepcid 20 MG] 20 mg PO BID 12/17/22 [History] Fluticasone/Umeclidin/Vilanter [Trelegy Ellipta 200-62.5-25] 1 each IH DAILY 12/17/22 [History] Furosemide [Lasix] 20 mg PO UD 12/17/22 [History] Guaifenesin 600 mg ER [Mucinex 600MG ER Tabs] 600 mg PO BID 12/17/22 [History] Loperamide HCl 2 mg [Imodium 2 mg] 2 mg PO Q4H PRN PRN 12/17/22 [History] Travel Risk - Vaccine Status Have you recieved a Covid-19 vaccination: Yes Aquaculture Farmer: Unknown - Vaccination Dates Dates if Unknown: . <RACHEL PICKERING - Last Filed: 01/03/23 06:03> - Review of Systems Constitutional: No Fever, No Chills Eyes: No Symptoms Ears, Nose, & Throat: No Symptoms Respiratory: Cough, Dyspnea Cardiac: No Chest Pain, No Edema, No Syncope Abdominal/Gastrointestinal: No Abdominal Pain, No Nausea, No Vomiting, No Diarrhea Genitourinary Symptoms: No Dysuria Musculoskeletal: No Back Pain, No Neck Pain Skin: No Rash Neurological: No Dizziness, No Focal Weakness, No Sensory Changes Psychological: No Symptoms Endocrine: No Symptoms Hematologic/Lymphatic: No Symptoms Immunological/Allergic: No Symptoms All Other Systems: Reviewed and Negative <RACHEL PICKERING - Last Filed: 01/03/23 06:03> - Past Medical History Pertinent Past Medical History: Yes Neurological History: No Pertinent History ENT History: No Pertinent History Cardiac History: Hypertension Respiratory History: Asthma, COPD, Emphysema Endocrine Medical History: No Pertinent History Musculoskeletal History: No Pertinent History GI Medical History: No Pertinent History History: No Pertinent History Psycho-Social History: No Pertinent History Male Reproductive Disorders: No Pertinent History - Past Surgical History Past Surgical History: No Neuro Surgical History: No Pertinent History Cardiac: No Pertinent History Respiratory: No Pertinent History Gastrointestinal: No Pertinent History Genitourinary: No Pertinent History Musculoskeletal: No Pertinent History Male Surgical History: No Pertinent History - Social History Smoking Status: Current every day smoker How long have you smoked: 60 years Exposure to second hand smoke: No Drug Use: none Patient Lives Alone: Yes (assisted living) <RACHEL PICKERING - Last Filed: 01/03/23 06:03> - Physical Exam General Appearance: no apparent distress, alert Eye Exam: PERRL/EOMI Ears, Nose, Throat Exam: normal ENT inspection, normal pharynx Neck Exam: normal inspection, supple Respiratory Exam: prolonged expirations, rhonchi Cardiovascular/Chest Exam: normal heart sounds, regular rate/rhythm Abdominal/Gastrointestinal Exam: soft, No tenderness, No distention, No mass Extremity Exam: non-tender, normal range of motion, normal inspection, no calf tenderness, no pedal edema Peripheral Pulses Exam: carotid (R): 2+, carotid (L): 2+, femoral (R): 2+, femoral (L): 2+, dorsalis-pedis (R): 2+, dorsalis-pedis (L): 2+ Neurologic Exam: alert, oriented x 3, cooperative, bar machine operator production II-XII nml as tested, sensation nml, No motor deficits Skin Exam: normal color, warm, No dry SpO2 Interpretation: hypoxic (would be hypoxic without O2) SpO2: 100 O2 Delivery: Nasal Cannula <RACHEL PICKERING - Last Filed: 01/03/23 06:03> - Nursing Vital Signs Nursing Vital Signs: Initial Vital Signs Temperature 98.2 F 01/03/23 05:58 Pulse Rate 83 01/03/23 05:58 Respiratory Rate 21 01/03/23 05:58 Blood Pressure 109/65 01/03/23 05:58 O2 Sat by Pulse Oximetry 100 01/03/23 05:58 Pain Scale Pain Intensity 0 - Course Nursing assessment & vital signs reviewed: Yes <RACHEL PICKERING - Last Filed: 01/03/23 06:03> - Course EKG Interpreted by Me: RATE (81), Sinus Rhythm, NORMAL INTERVALS, Right Bundle Branch Block - CT Exams Chest CT Interpretation: Tele-radiologist Report (CT reveals small hiatal hernia, GERD, bilateral pleural effusions, COPD/emphysema, lung granuloma, fluid dis tended small bowel possible ileus enteritis or small bowel obstruction.) <SIXTO MEJIAS - Last Filed: 01/03/23 14:20> Ordered Tests: Active Orders 24 hr Category Date Time Status Estate Conservator STAT Care 01/03/23 06:16 Active IV Insertion STAT Care 01/03/23 06:15 Active Pulse Oximetry (ED) STAT Care 01/03/23 06:15 Active CHEST 1 VIEW (PORTABLE) Stat Exams 01/03/23 06:16 Completed CHEST WITH CONTRAST [CT] Stat Exams 01/03/23 07:15 Completed CBC Q48H Lab 01/04/23 06:00 Ordered CBC Q48H Lab 01/06/23 06:00 Ordered CBC Q48H Lab 01/08/23 07:00 Ordered CBC Q48H Lab 01/10/23 07:00 Ordered CBC Q48H Lab 01/12/23 07:00 Ordered CBC Q48H Lab 01/14/23 07:00 Ordered CBC Q48H Lab 01/16/23 07:00 Ordered CBC Stat Lab 01/03/23 10:52 Completed CBC W DIFF Stat Lab 01/03/23 05:50 Completed CMP Stat Lab 01/03/23 05:50 Completed D-DIMER QUANTITATIVE Stat Lab 01/03/23 05:50 Completed NT PRO BNPII Stat Lab 01/03/23 05:50 Completed PROTIME WITH INR Stat Lab 01/03/23 10:11 Completed PTT Stat Lab 01/03/23 10:11 Completed TROPONIN Q4H Lab 01/03/23 05:50 Completed TROPONIN Q4H Lab 01/03/23 10:15 Completed TROPONIN Q4H Lab 01/03/23 14:30 Ordered Respiratory Therapy Assessment DAILY RT 01/03/23 06:40 Active Medication Summary Generic Name Dose Route Start Last Admin Trade Name Davidq PRN Reason Stop Dose Admin Sodium Chloride 1,000 mls @ 100 mls/hr 01/03/23 06:15 01/03/23 06:21 Sodium Chloride 0.9% 1000 Ml IV 02/02/23 06:14 100 mls/hr .Q10H ROGE Administration Heparin Sodium/Dextrose 25,000 units in 250 mls @ 6.912 mls/hr 01/03/23 10:30 01/03/23 10:36 Heparin 25,000 Units/D5w: Use Order Set Analia IV 02/02/23 10:29 12 units/kg/hr .Q24H ROGE 6.912 mls/hr Administration Protocol 12 UNITS/KG/HR Discontinued Medications Generic Name Dose Route Start Last Admin Trade Name Abby PRN Reason Stop Dose Admin Albuterol/Ipratropium 3 ml 01/03/23 06:15 01/03/23 06:27 Ipratropium/Albuterol Sulfate 3 Ml Ampul.Neb IH 01/03/23 06:16 3 ml STAT ONE Administration Albuterol/Ipratropium Confirm 01/03/23 06:24 Ipratropium/Albuterol Sulfate 3 Ml Ampul.Neb Administered 01/03/23 06:25 Dose 3 ml IH .STK-MED ONE Methylprednisolone Sodium 0 mg 01/03/23 06:15 01/03/23 06:21 Succinate 125 mg/ Sterile IV 01/03/23 06:16 125 mg Water 2 ml STAT ONE Administration Heparin Sodium (Beef Lung) Confirm 01/03/23 10:19 Heparin 5000 Units/0.5 Ml 5,000 Unit/0.5 Ml Syr Administered 01/03/23 10:20 Dose 5,000 unit .ROUTE .STK-MED ONE Heparin Sodium (Beef Lung) 3,500 unit 01/03/23 10:23 01/03/23 10:29 Heparin 5000 Units/0.5 Ml 5,000 Unit/0.5 Ml Syr 60 unit/kg (3500 unit) 01/03/23 10:24 3,500 unit IV Administration STAT STA Heparin Sodium/Dextrose Confirm 01/03/23 10:22 Heparin 25,000 Units/D5w: Use Order Set Analia Administered 01/03/23 10:23 Dose 25,000 units in 250 mls @ ud IV .STK-MED ONE Methylprednisolone Sodium Succinate Confirm 01/03/23 06:19 Methylprednis Sod Succ 125 Mg/2 Ml Vial Administered 01/03/23 06:20 Dose 125 mg .ROUTE .STK-MED ONE Sterile Water Confirm 01/03/23 06:19 Water For Injection,Sterile 10 Ml Vial Administered 01/03/23 06:20 Dose 10 ml IJ .STK-MED ONE Lab/Rad Data: Laboratory Result Diagrams 01/03/23 10:52 01/03/23 05:50 Laboratory Results 01/03/23 01/03/23 01/03/23 Range/Units 10:52 10:15 10:11 WBC 13.9 H (4.0-10.5) x10^3/uL RBC 2.62 L (4.1-5.6) x10^6/uL Hgb 8.4 L (12.5-18.0) g/dL Hct 26.9 L (42-50) % MCV 102.7 H (78-100) fL MCH 32.1 H (26-32) pg MCHC 31.2 L (32-36) g/dL RDW 13.4 (11.5-14.0) % Plt Count 417 (150-450) x10^3/uL MPV 9.1 (7.5-11.0) fL Gran % (36.0-66.0) % Immature Gran % (Auto) (0.00-0.4) % Nucleat RBC Rel Count (0.00-0.1) % Eos # (Auto) (0-0.5) x10^3/uL Immature Gran # (Auto) (0.00-0.03) x10^3u/L Absolute Lymphs (auto) (1.0-4.6) x10^3/uL Absolute Monos (auto) (0.0-1.3) x10^3/uL Absolute Nucleated RBC (0.00-0.01) x10^3u/L Lymphocytes % (24.0-44.0) % Monocytes % (0.0-12.0) % Eosinophils % (0.00-5.0) % Basophils % (0.0-0.4) % Absolute Granulocytes (1.4-6.9) x10^3/uL Basophils # (0-0.4) x10^3/uL PT 10.5 (9.4-12.5) SECONDS INR 0.96 (0.8-3.0) APTT 27.6 (25.1-36.5) SECONDS D-Dimer (0.0-0.50) mg/L Sodium (137-145) mmol/L Potassium (3.5-5.1) mmol/L Chloride (98-107) mmol/L Carbon Dioxide (22-30) mmol/L Anion Gap (5-15) MEQ/L BUN (9-20) mg/dL Creatinine (0.66-1.25) mg/dL Estimated GFR ML/MIN Glucose (74-106) mg/dL Calcium (8.4-10.2) mg/dL Total Bilirubin (0.2-1.3) mg/dL AST (17-59) U/L ALT (0-50) U/L Alkaline Phosphatase (38-126) U/L Troponin I 0.148 H* (0.000-0.034) ng/mL NT-Pro-B Natriuret Pep (<300) pg/mL Serum Total Protein (6.3-8.2) g/dL Albumin (3.5-5.0) g/dL Influenza Type A Ag (NEGATIVE) Influenza Type B Ag (NEGATIVE) RSV (PCR) (Negative) SARS-CoV-2 (PCR) (NEGATIVE) 01/03/23 01/03/23 01/03/23 Range/Units 06:56 05:50 05:50 WBC (4.0-10.5) x10^3/uL RBC (4.1-5.6) x10^6/uL Hgb (12.5-18.0) g/dL Hct (42-50) % MCV (78-100) fL MCH (26-32) pg MCHC (32-36) g/dL RDW (11.5-14.0) % Plt Count (150-450) x10^3/uL MPV (7.5-11.0) fL Gran % (36.0-66.0) % Immature Gran % (Auto) (0.00-0.4) % Nucleat RBC Rel Count (0.00-0.1) % Eos # (Auto) (0-0.5) x10^3/uL Immature Gran # (Auto) (0.00-0.03) x10^3u/L Absolute Lymphs (auto) (1.0-4.6) x10^3/uL Absolute Monos (auto) (0.0-1.3) x10^3/uL Absolute Nucleated RBC (0.00-0.01) x10^3u/L Lymphocytes % (24.0-44.0) % Monocytes % (0.0-12.0) % Eosinophils % (0.00-5.0) % Basophils % (0.0-0.4) % Absolute Granulocytes (1.4-6.9) x10^3/uL Basophils # (0-0.4) x10^3/uL PT (9.4-12.5) SECONDS INR (0.8-3.0) APTT (25.1-36.5) SECONDS D-Dimer (0.0-0.50) mg/L Sodium (137-145) mmol/L Potassium (3.5-5.1) mmol/L Chloride (98-107) mmol/L Carbon Dioxide (22-30) mmol/L Anion Gap (5-15) MEQ/L BUN (9-20) mg/dL Creatinine (0.66-1.25) mg/dL Estimated GFR ML/MIN Glucose (74-106) mg/dL Calcium (8.4-10.2) mg/dL Total Bilirubin (0.2-1.3) mg/dL AST (17-59) U/L ALT (0-50) U/L Alkaline Phosphatase (38-126) U/L Troponin I 0.214 H* (0.000-0.034) ng/mL NT-Pro-B Natriuret Pep 7200 (<300) pg/mL Serum Total Protein (6.3-8.2) g/dL Albumin (3.5-5.0) g/dL Influenza Type A Ag NEGATIVE (NEGATIVE) Influenza Type B Ag NEGATIVE (NEGATIVE) RSV (PCR) NEGATIVE (Negative) SARS-CoV-2 (PCR) NEGATIVE (NEGATIVE) 01/03/23 01/03/23 01/03/23 Range/Units 05:50 05:50 05:50 WBC 11.2 H (4.0-10.5) x10^3/uL RBC 2.88 L (4.1-5.6) x10^6/uL Hgb 9.3 L (12.5-18.0) g/dL Hct 29.5 L (42-50) % MCV 102.4 H (78-100) fL MCH 32.3 H (26-32) pg MCHC 31.5 L (32-36) g/dL RDW 13.3 (11.5-14.0) % Plt Count 469 H (150-450) x10^3/uL MPV 9.5 (7.5-11.0) fL Gran % 80.3 H (36.0-66.0) % Immature Gran % (Auto) 1.2 H (0.00-0.4) % Nucleat RBC Rel Count 0.0 (0.00-0.1) % Eos # (Auto) 0.06 (0-0.5) x10^3/uL Immature Gran # (Auto) 0.13 H (0.00-0.03) x10^3u/L Absolute Lymphs (auto) 1.40 (1.0-4.6) x10^3/uL Absolute Monos (auto) 0.59 (0.0-1.3) x10^3/uL Absolute Nucleated RBC 0.00 (0.00-0.01) x10^3u/L Lymphocytes % 12.5 L (24.0-44.0) % Monocytes % 5.3 (0.0-12.0) % Eosinophils % 0.5 (0.00-5.0) % Basophils % 0.2 (0.0-0.4) % Absolute Granulocytes 8.98 H (1.4-6.9) x10^3/uL Basophils # 0.02 (0-0.4) x10^3/uL PT (9.4-12.5) SECONDS INR (0.8-3.0) APTT (25.1-36.5) SECONDS D-Dimer 4.47 H* (0.0-0.50) mg/L Sodium 138 (137-145) mmol/L Potassium 3.6 (3.5-5.1) mmol/L Chloride 100 (98-107) mmol/L Carbon Dioxide 34 H (22-30) mmol/L Anion Gap 7.4 (5-15) MEQ/L BUN 14 (9-20) mg/dL Creatinine 0.59 L (0.66-1.25) mg/dL Estimated GFR > 60.0 ML/MIN Glucose 83 (74-106) mg/dL Calcium 8.0 L (8.4-10.2) mg/dL Total Bilirubin 0.40 (0.2-1.3) mg/dL AST 20 (17-59) U/L ALT 14 (0-50) U/L Alkaline Phosphatase 64 (38-126) U/L Troponin I (0.000-0.034) ng/mL NT-Pro-B Natriuret Pep (<300) pg/mL Serum Total Protein 5.6 L (6.3-8.2) g/dL Albumin 2.7 L (3.5-5.0) g/dL Influenza Type A Ag (NEGATIVE) Influenza Type B Ag (NEGATIVE) RSV (PCR) (Negative) SARS-CoV-2 (PCR) (NEGATIVE) - Progress Progress: improved, re-examined Air Movement: good Blood Culture(s) Obtained: No Antibiotics given: No Counseled pt/family regarding: lab results, diagnosis, need for follow-up, rad results <RACHEL PICKERING - Last Filed: 01/03/23 06:03> <SIXTO MEJIAS - Last Filed: 01/03/23 14:20> - Progress Progress Note: Patient endorsed to Dr. Mejias at approximately [address] Mejias advised to follow- up on pending. EKG reviewed by Dr. Mejias. EKG similar to previous. Right bundle branch block observed. No STEMI 01/03/23 07:[address] Cesar from [facility] who accepts transfer. Plan of care discussed with patient. He agrees to transfer to [facility] for further evaluation and treatment. 01/03/23 12:11 77-year-old male presents to our ED for evaluation of shortness of breath. Patient evaluated initially by Dr. Carrington. Work-up revealed elevated troponin. Positive D-dimer. CTA chest negative. Testing includes chest x-ray CT chest, CBC, CMP, COVID test, D-dimer, BNP, PT, PTT, troponin. Patient diagnosed with NSTEMI due to elevated troponin and shortness of breath. Heparin initiated. Patient received a dose of aspirin prior to arrival. Patient's presenting symptom was acute. Complexity of problems addressed was moderate. Patient's complaint was acute with systemic manifestation. No critical care time. Complexity of data reviewed was moderate. Test ordered test reviewed. Patient served as independent historian however son at bedside provided significant information towards HPI. EKG was interpreted independently. Case discussed receiving emergency physician at [facility]. Dr. Carrington and I also discussed the case. Risk of complication and/or risk of morbidity/mortality of patient management was high. Patient received prescription grade medications including nebulizer treatment. Require transfer to higher level of care. Portions of this note were created with voice recognition technology. There may be grammatical, spelling, punctuation or sound alike errors 01/03/23 13:56 (SIXTO MEJIAS) Medical Desision Making - Independent Historian Additional History obtained from: EMS - Discussion of managment Reviewed:: Test results, Need for additional workup Agreed on:: Treatment plan, need for follow-up - Diagnostic Testing Diagnostic test were ordered, analyzed, and reviewed by me: Yes Radiological Interpretation: Reviewed by me <RACHEL PICKERING - Last Filed: 01/03/23 06:03> <RACHEL PICKERING - Last Filed: 01/03/23 06:03> - Departure Critical Care Time: No <SIXTO MEJIAS - Last Filed: 01/03/23 14:20> - Departure Clinical Impression: COPD exacerbation, Leukocytosis, Megaloblastic anemia, Thrombocytosis, Elevated d-dimer, Hiatal hernia, GERD (gastroesophageal reflux disease), Pleural effusion, Emphysema lung, Elevated troponin, Fluid distended small bowel Condition: Stable Referrals: MARCELO MONTAÑO [Primary Care Provider] - Follow up/PCP as directed Instructions: Chronic Obstructive Pulmonary Disease
[2023-01-03] MEDS ORDERED: Sodium Chloride 0.9% 1000 ML 1,000 ML IV SCH (06:15)
[2023-01-03] MEDS ORDERED: DUONEB 0.5-3 MG/3 ml Neb IH ONE ×2 (06:15→06:24)
[2023-01-03] MEDS ORDERED: solu-MEDROL 125 MG, Sterile H2O 10 ml 2 ML IV ONE ×2 (06:15)
[2023-01-03] MEDS ORDERED: Sterile H2O 10 ml IJ ONE (06:19)
[2023-01-03] MEDS ORDERED: solu-MEDROL ONE (06:19)
[2023-01-03] MEDS ORDERED: Sodium Chloride 0.9% 1000 ML 1,000 ML ONE (06:19)
[2023-01-03 06:39] LABS: Absolute Neutrophil Ct (ANC) 8.98 x10^3/uL (1.4-6.9); BASOPHIL % 0.2 % (0.0-0.4); Basophil (Absolute #) 0.02 x10^3/uL (0-0.4); Eosinophil % 0.5 % (0.00-5.0); Eosinophil (Absolute #) 0.06 x10^3/uL (0-0.5); Hematocrit 29.5 % (42-50); Hemoglobin 9.3 g/dL (12.5-18.0); IMMATURE GRAN # 0.13 x10^3u/L (0.00-0.03); IMMATURE GRAN % 1.2 % (0.00-0.4); Lymphocytes % 12.5 % (24.0-44.0); Mean Cell Volume 102.4 fL (78-100); Mean Corpuscular Hemoglobin 32.3 pg (26-32); Mean Corpuscular Hgb Concent. 31.5 g/dL (32-36); Mean Platelet Volume 9.5 fL (7.5-11.0); Monocyte (Absolute #) 0.59 x10^3/uL (0.0-1.3); Monocytes % 5.3 % (0.0-12.0); Neutrophil % 80.3 % (36.0-66.0); Platelet Count 469 x10^3/uL (150-450); Red Blood Count 2.88 x10^6/uL (4.1-5.6); Red Cell Distribution Width 13.3 % (11.5-14.0); White Blood Count 11.2 x10^3/uL (4.0-10.5)
[2023-01-03 06:50] LABS: ALBUMIN 2.7 g/dL (3.5-5.0); ALKALINE PHOSPHATASE 64 U/L (38-126); ANION GAP 7.4 MEQ/L (5-15); BLOOD UREA NITROGEN 14 mg/dL (9-20); CHLORIDE 100 mmol/L (98-107); Carbon Dioxide 34 mmol/L (22-30); Creatinine 1 0.59 mg/dL (0.66-1.25); EST GLOMERULAR FILTRATION RATE > 60.0 ML/MIN; Glucose 83 mg/dL (74-106); Potassium 3.6 mmol/L (3.5-5.1); SGOT/AST 20 U/L (17-59); SGPT/ALT 14 U/L (0-50); SODIUM 138 mmol/L (137-145); Total Protein 5.6 g/dL (6.3-8.2)
[2023-01-03 07:34] LABS: INFLUENZA A NEGATIVE (NEGATIVE); INFLUENZA B NEGATIVE (NEGATIVE); RESPIRATORY SYNCTIAL VIRUS NEGATIVE (Negative); SARS-CoV-2 Xpert Express NEGATIVE (NEGATIVE)
--- NOTE | 2023-01-03 09:03 | XRAY ---
Indication: Short of breath. Comparison: December 17, 2022 Portable chest again demonstrates small bibasilar effusions/atelectasis, slightly worsened on the left. New right mid to lower lung field ground glass airspace disease. Stable COPD and tiny left calcified granuloma. Heart not enlarged.
--- NOTE | 2023-01-03 09:09 | XRAY ---
Indication: Short of breath. Pulmonary embolus. Multiple contiguous images obtained through the chest using 80 cc Isovue 370 contrast and PE protocol. Comparison: December 17, 2022 Good opacification of the pulmonary arteries to include the lobar and segmental branches. No pulmonary embolus. Heart not enlarged. Aorta again mildly atherosclerotic without aneurysm/dissection. No pathologic mediastinal/hilar lymphadenopathy. Again small hiatal hernia with new fluid in distal esophagus favoring GERD. Lungs demonstrates worsening moderate bilateral effusions with worsening bibasilar compressive atelectasis. Remaining lungs again demonstrates diffuse emphysema, scattered fibrosis/scarring, and left lower lobe calcific granuloma. Bony thorax intact again with osteopenia and mild degenerative changes throughout the spine. Limited upper abdomen now demonstrates incompletely visualized fluid distended small bowel loops up to 4.5 cm with fluid leveling. Impression: 1. Continued negative pulmonary embolus. 2. Worsening moderate bilateral pleural effusions and bibasilar atelectasis again without cardiomegaly. 3. New incompletely visualized fluid distended small bowel loops with fluid leveling. Rule out ileus versus enteritis versus small bowel obstruction. 4. Again small hiatal hernia with new GERD. 5. Again chronic findings including pulmonary emphysema, scattered fibrosis/scarring, arteriosclerotic disease, chronic bony findings, and old granulomatous disease.
[2023-01-03 10:14] VITALS: O2SAT 99
[2023-01-03] MEDS ORDERED: HEPARIN 5000 UNITS/0.5 ML (HIGH RISK MED) ONE (10:19)
[2023-01-03] MEDS ORDERED: Heparin 25,000 units/D5W: USE ORDER SET PROTO 25,000 UNITS/250 ML BAG IV ONE (10:22)
[2023-01-03] MEDS ORDERED: HEPARIN 5000 UNITS/0.5 ML (HIGH RISK MED) IV STA (10:23)
[2023-01-03 10:28] LABS: INR 0.96 (0.8-3.0); PROTIME 10.5 SECONDS (9.4-12.5); PTT 27.6 SECONDS (25.1-36.5)
[2023-01-03] MEDS ORDERED: Heparin 25,000 units/D5W: USE ORDER SET PROTO 25,000 UNITS/250 ML BAG IV SCH (10:30)
[2023-01-03 10:59] LABS: Hematocrit 26.9 % (42-50); Hemoglobin 8.4 g/dL (12.5-18.0); Mean Cell Volume 102.7 fL (78-100); Mean Corpuscular Hemoglobin 32.1 pg (26-32); Mean Corpuscular Hgb Concent. 31.2 g/dL (32-36); Mean Platelet Volume 9.1 fL (7.5-11.0); Platelet Count 417 x10^3/uL (150-450); Red Blood Count 2.62 x10^6/uL (4.1-5.6); Red Cell Distribution Width 13.4 % (11.5-14.0); White Blood Count 13.9 x10^3/uL (4.0-10.5)
[2023-01-03 12:30] VITALS: BP 102/60; PULSE 77
== END 2023-01-03 13:45 | disposition short-term general hospital (02) ==
LOC: ED 05:49
DX: J44.1 Chronic obstructive pulmonary disease with (acute) exacerbation (principal); D72.829 Elevated white blood cell count, unspecified; D53.1 Other megaloblastic anemias, not elsewhere classified; D75.839 Thrombocytosis, unspecified; R79.1 Abnormal coagulation profile; K21.9 Gastro-esophageal reflux disease without esophagitis; K44.9 Diaphragmatic hernia without obstruction or gangrene; J90 Pleural effusion, not elsewhere classified; R77.8 Other specified abnormalities of plasma proteins; K63.89 Other specified diseases of intestine; R06.02 Shortness of breath; I10 Essential (primary) hypertension; Z79.899 Other long term (current) drug therapy; Z72.0 Tobacco use; Z20.828 Contact with and (suspected) exposure to other viral communicable diseases
CPT/HCPCS: 0241U; 36000; 36415; 71045; 71260; 80053; 83880; 84484; 85025; 85027; 85379; 85610; 85730; 93041; 94640; 94760; 96374; 96375; 99284; J1644; J2930; A9270-GY